=== PATIENT | female | born 1955 | race Caucasian/White ===

== ENCOUNTER 2024-09-01 10:20 | Outpatient (AMB) | payer MEDICARE, OTHER, SELFPAY ==
--- NOTE | 2024-09-01 10:30 | MHC.PC.OV ---
Vital Signs 09/01/24 10:42 Height 4 ft 11.45 in Weight 226 lb 8 oz BMI 45.1 BP 132/78 Blood Pressure Location Lt brachial Position Sitting Respiration 16 Pulse 79 Pulse Source Pulse Oximeter Pulse Oximetry (%) 99 Oxygen Delivery Method Room Air Intake Visit Reasons: RAPHAEL / from [facility] Intake Note: New patient visit Bead Builder Required: No Allergies morphine Allergy (Severe, Verified 09/01/24 10:36) Swelling Penicillins Allergy (Severe, Verified 09/01/24 10:36) face swelling sulfamethoxazole [From Bactrim] Allergy (Severe, Verified 09/01/24 10:36) Rash trimethoprim [From Bactrim] Allergy (Severe, Verified 09/01/24 10:36) Rash doxycycline Allergy (Unknown, Verified 09/01/24 10:36) Hives bee sting Allergy (Severe, Uncoded 09/01/24 10:36) Hives ivp dye Allergy (Unknown, Uncoded 09/01/24 10:36) Hives Tobacco use date assessed: 09/01/24 Fall risk assessment: No Falls in past year Last assessed Fall Risk: 09/01/24 Dental Screening Dental Screen Date: 09/01/24 Did you have a dental visit in the last 12 months?: Yes Did you have a dental problem in the last 6 months where you did not have access to dental care?: No Was dental information given to patient?: Patient has dentist HPI HPI Comments History of Present Illness Details 69 year old female with a past medical history of hypertension, prediabetes, viral pericarditis, obesity, OA, back pain, presenting to reestablish care CV: On lisinopril. Had post viral pericarditis ~ 1 year ago. Denies chest pain, shortness of breath. MSK: Neck, low back, knee pain. Following with Sharif King. Tweaked the back in February. [place] something pop when she woke up. Had MRI lumbar spine with no actue findings. Urologic: 2019 kidney stone removal. Passed right sided kidney stone last week. Follows every six months with Dr Valdez. Leyla due 08/14/2026 Mammogram 02/28/2025 ROS CONSTITUTIONAL: Denies weight loss, fever and chills. HEENT: Denies changes in vision and hearing. RESPIRATORY: Denies SOB and cough. CV: Denies palpitations and CP GI: Denies abdominal pain, nausea, vomiting and diarrhea. : Denies dysuria and urinary frequency. MSK: Denies new myalgia and joint pain. SKIN: Pain on the great toe bed NEUROLOGICAL: Denies headache PSYCHIATRIC: Denies recent changes in mood. PHYSICAL EXAM: GENERAL: Alert and oriented x 3. NAD EYES: EOMI. Anicteric. HENT: Moist mucous membranes. No scleral icterus. No cervical lymphadenopathy. LUNGS: Clear to auscultation bilaterally. CARDIOVASCULAR: Regular rate and rhythm. No murmur. No JVD. ABDOMEN: Soft, non-tender +bs EXTREMITIES: No edema. Non-tender. SKIN: Pain under the right great toe nail with mild fluctuance NEUROLOGIC: No focal neurological deficits. CN II-XII grossly intact PSYCHIATRIC: Cooperative. 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 1. Little interest or pleasure in doing things: not at all 2. Feeling down, depressed, or hopeless: not at all 3. Trouble falling or staying asleep, or sleeping too much: not at all 4. Feeling tired or having little energy: not at all 5. Poor appetite or overeating: not at all 6. Feeling bad about yourself - or that you are a failure or have let yourself or your family down: not at all 7. Trouble concentrating on things, such as reading the newspaper or watching television: not at all 8. Moving or speaking so slowly that other people could have noticed. Or the opposite - being so fidgety or restless that you have been moving around a lot more than usual: not at all 9. Thoughts that you would be better off or of hurting yourself in some way: not at all Total score: 0 Source: Developed by Drs. Yovany Ross, Jaky An, Sammy Goldstein and colleagues, with an educational jerome from [employer]. Thrive Questionnaire Date Thrive assessed: 08/25/24 I am a: Patient What is your living situation today?: I have a steady place to live Within the past 12 months, did the food you bought not last and you didn't have the money to get more?: I choose not to answer this question Within the past 12 months, did you worry whether your food would run out before you got money to buy more?: I choose not to answer this question Do you have trouble paying for medicines?: I choose not to answer this question Do you have trouble getting transportation to medical appointments?: I choose not to answer this question Do you have trouble paying your heating and electricity bill?: I choose not to answer this question Do you have trouble taking care of your child, family member or friend?: I choose not to answer this question Do you have trouble with day-to-day activities such as bathing, preparing meals, shopping, managing finances, etc.?: I choose not to answer this question Are you currently unemployed and looking for a job?: I choose not to answer this question Are you interested in more education?: I choose not to answer this question Please select the resources that you would like help with: None Currently or been in a relationship where the following occur: No concerns reported THRIVE Score: 0 AUDIT C Alcohol Use Questionnaire (AUDIT-C) 1. How often do you have a drink containing alcohol?: Never Total Score: 0 IVA-7 AMB Questionnaire IVA-7 Feeling nervous, anxious, or on edge: 0 = Not at all Not being able to stop or control worryin = Not at all Worrying too much about different things: 0 = Not at all Trouble relaxin = Not at all Being so restless that it is hard to sit still: 0 = Not at all Becoming easily annoyed or irritable: 0 = Not at all Feeling afraid as if something awful might happen: 0 = Not at all Total IVA-7 score (0-4 normal; 5-9 mild; 10-14 moderate; 15-21 severe): 0 Source: Developed by Drs. Yovany Ross, Jaky An, Sammy Goldstein and colleagues, with an educational jerome from [employer]. Physical exam (Primary Care) Vital Signs: Last Vital Signs Pulse 79 09/01/24 10:42 Resp 16 09/01/24 10:42 BP 132/78 09/01/24 10:42 Pulse Ox 99 09/01/24 10:42 Oxygen Delivery Method Room Air 09/01/24 10:42 BMI result Body Mass Index 45.1 Tobacco/Smoking Status: Tobacco use Status Tobacco use date assessed 09/01/24 09/01/24 10:46 Patient Tobacco Use Status Never used Tobacco 09/01/24 10:46 e-Cigarette/Vaping Use Never Used 09/01/24 10:46 PHQ-9: PHQ-9 Score PHQ-9: Total score 0 09/01/24 10:52 Thrive Assessment: Date of Thrive Assessment Date Thrive assessed 08/25/24 09/01/24 10:33 Currently or been in a relationship where the following occur: No concerns reported Coding Level of Care Code New Pt Level 4 (70247) Complex EM visit Add On G2211 Diagnoses Paronychia of great toe L03.039 Primary hypertension I10 Hypertension type: primary hypertension Prediabetes R73.03 Assessment & Plan Assessment & Plan (1) Paronychia of great toe: Code(s): L03.039 - Cellulitis of unspecified toe Category: Medical Plan: mupirocin ordered. 5 days of keflex. if no improvement she will call podiatry (2) Hypertension: Code(s): I10 - Essential (primary) hypertension Category: Medical Qualifiers: Hypertension type: primary hypertension Qualified Code(s): I10 - Essential (primary) hypertension (3) Prediabetes: Code(s): R73.03 - Prediabetes Category: Medical Plan 69 year old male female presenting to [facility]. past medical, surgical, social and family history reviewed. BP is well controlled. Monitor sugar. Orders: Orders Comprehensive Met. Panel 09/01/24 I10 - Essential (primary) hypertension, R73.03 - Prediabetes, Z13.0 - Encounter for screening for diseases of the blood and blood-forming organs and certain disorders involving the immune mechanism, Z13.220 - Encounter for screening for lipoid disorders, Z13.228 - Encounter for screening for other metabolic disorders Lipid Panel 09/01/24 I10 - Essential (primary) hypertension, R73.03 - Prediabetes, Z13.0 - Encounter for screening for diseases of the blood and blood-forming organs and certain disorders involving the immune mechanism, Z13.220 - Encounter for screening for lipoid disorders, Z13.228 - Encounter for screening for other metabolic disorders Complete Blood Count Auto Diff 09/01/24 I10 - Essential (primary) hypertension, R73.03 - Prediabetes, Z13.0 - Encounter for screening for diseases of the blood and blood-forming organs and certain disorders involving the immune mechanism, Z13.220 - Encounter for screening for lipoid disorders, Z13.228 - Encounter for screening for other metabolic disorders Hemoglobin A1c 09/01/24 R73.03 - Prediabetes Medications: New cephalexin 500 mg PO QID 20 caps 0RF mupirocin 2% 1 appl topical BID 22 grams 0RF lisinopril 10 mg PO DAILY 90 tabs 3RF
[2024-09-01 10:42] VITALS: BP 132/78; PULSE 79; RESP 16; O2SAT 99; BMI 45.1
--- OUTSIDE RECORDS SUMMARY | 2024-09-01 11:10 | XMS_ITS | Clinical Summary ---
Author Organization [facility] Facility Address [address] [place] [id number] Care Team Providers Care Sound Technician Name Role Phone Unavailable Primary Care Provider Unavailabl e Social History Tobacco Use Types Packs/Day Years Used Date Smoking Tobacco: Never Assessed Comments Unknown Sex and Gender Information Value Date Recorded Sex Assigned at Not on file Legal Sex Female 8:25 AM EDT Gender Identity Not on file Sexual Orientation Not on file Plan of Treatment Health Maintenance Due Date Last Done Comments Breast Cancer Screening 1957 Colorectal Cancer Screening: Annual FOBT 2006 Colorectal Cancer Screening: Colonoscopy 2006 Colorectal Cancer Screening: Sigmoidoscopy 2006 Pneumococcal Vaccine: 65+ Years (1 of 1 - PCV) 2022 Influenza Vaccine (#1) 2024 04/20/2018 Hepatitis B Vaccine Aged Out 10/26/2013, 05/26/2013, 04/26/2013 No longer eligible based on patient's age to complete this topic Insurance MEDICARE [facility] MEDICARE [facility]
--- OUTSIDE RECORDS SUMMARY | 2024-09-01 11:10 | XMS_ITS | Encounter Summary ---
Author Organization [facility] Address [address] [place] [address] Care Team Providers Care Syrup Maker Cook Name Role Phone Nicole Romo MD Primary Care Provider [phone] Reason for Visit * Reason Comments Foot Problem Fungus Encounter Details Date Type Department Care Team ([facility] st Contact Info) Description 08/02/2024 2:30 PM EST Consult Orthopedic Surgery - [place] [id number] [phone] Porfirio Byrne, DPM [address] [id number] Dermatophytosis of nail (Primary Dx); Tinea pedis of both feet; Pain in toe of right foot; Pain in toe of left foot; Diabetic mononeuropathy simplex (CMS/HCC) Social History Tobacco Use Types Packs/Day Years Used Date Smoking Tobacco: Never Assessed Comments Unknown Sex and Gender Information Value Date Recorded Sex Assigned at Not on file Legal Sex Female 10:56 AM EST Gender Identity Not on file Sexual Orientation Not on file documented as of this encounter Last Filed Vital Signs Vital Sign Reading Time Taken Comments Blood Pressure - - Pulse - - Temperature - - Respiratory Rate - - Oxygen Saturation - - Inhaled Oxygen Concentration - - Weight 103 kg (228 lb) 08/02/2024 2:54 PM EST Height - - Body Mass Index 46.05 04/05/2024 11:25 AM EDT documented in this encounter Ordered Prescriptions Prescription Sig Dispense Quantity Refills Last Filled Start Date End Date miconazole nitrate 2 % aerosol,spray Apply topically 1 (one) time each day. 133 g 2 08/02/2024 5 documented in this encounter Progress Notes * Porfirio Byrne DPM - 08/02/2024 2:30 PM EST Last PCP visit:Referring MD: Elva MARTINES 02/21/2024 IDENTIFIER: Kassidy is a 69 y.o. year old female who presents for consultation. CC: Foot pain HPI: Patient presents today for evaluation of her feet she reports that she has numbness burning tingling to her feet she states that she has thick fungal nails and skin that to bother her religiously andregularly she has not treated them she states they do bother her she feels like it itchy achy throbbing does follow with her primary care physician last A1c was 6 does note that her nerve damage may be more related to her history of multiple back surgeries and she feels like her feet feel funny andlook funny ROS: GENERAL: Pt denies nausea, fever, vomiting, chills, or shortness of breath. Pt in NAD. CARDIOLOGY: pt denies chest pain, palpitations LUNGS: pt denies shortness of breath MUSCULOSKELETAL: See HPI, otherwise no joint pain or swelling, back pain, or muscle pain. SKIN: see HPI, otherwise no lesions, rash or itching NEURO: No persistent headache, weakness or numbness The remainder of the review of systems is noncontributory PAST MEDICAL HISTORY: Patient Active Problem List Diagnosis Allergic rhinitis Benign paraspinal mass Essential hypertension, benign Cervicalgia Chronic sinusitis Dyspnea on exertion Lumbar radiculopathy Nephrolithiasis Right knee pain Varicose veins of lower extremities with inflammation Vitamin D deficiency Morbid obesity with BMI of 40.0-44.9, adult ([facility]) SOCIAL HISTORY: Social History Tobacco Use Smoking status: Not on file Smokeless tobacco: Not on file Substance Use Topics Alcohol use: Not on file ACTIVE MEDICATIONS: No outpatient medications have been marked as taking for the 08/02/24 encounter (Consult) with Porfirio Byrne DPM. ALLERGIES: Allergies Allergen Reactions Bee Venom Protein (Honey Bee) Swelling Iodinated Contrast Media Hives Morphine Anaphylaxis Penicillins Swelling Sulfa (Sulfonamide Antibiotics) Rash Doxycycline Itching Sulfamethoxazole-Trimethoprim Rash PHYSICAL EXAM: Visit Vitals Wt 103 kg (228 lb) BMI 46.05 kg/m?? Smoking Status Never Assessed BSA 1.95 m?? PODIATRIC EXAMINATION: GENERAL: Patient appears well nourished, with NAD. VASCULAR: Dorsalis pedis pulses are 2/4 bilaterally and Posterior tibial pulses are 2/4 bilaterally. Capillary filling time within normal limits the digits. No pallor on elevation or rubor on dependency. Positive hair growth. No varicosities. Denies rest pain or claudication pain. NEUROLOGICAL: Sharp/dull sensation , protective sensation 8/10 with 5.07 semmes kvng bilaterally, vibratory sensation with tuning fork intact to the tibial tuberosity. ORTHOPEDIC: Good muscle strength 5/5 of all flexors and extensors. Dorsi flexion of ankle ,10 degrees, plantar flexion WNL. No muscle atrophy. DERMATOLOGICAL:. Toenails: Left Toenail(s) 1-5: Crumbling upon debridement, subungual debris, discoloration, dystrophy, elongation, mycotic appearance, onychomycosis, pain and thickening. Right Toenail(s) 1-5: Crumbling upon debridement, subungual debris, discoloration, dystrophy, elongation, mycotic appearance, onychomycosis, pain and thickening. Annular scaling bilateral feet moccasin distribution Skin thinning texture shiny appearance diffuse hyperpigmentation bilaterally pedal hair decreased BIOMECHANICS: Ankle ROM WNL, STJ ROM wnl, MTJ ROM wnl, 1st MPJ ROM wnl. IMAGING: IMPRESSION: 1. Dermatophytosis of nail 2. Tinea pedis of both feet 3. Pain in toe of right foot 4. Pain in toe of left foot 5. Diabetic mononeuropathy simplex (CMS/HCC) PLAN: Pt was seen and examined, history reviewed. Miconazole spray prescribed Discussed with patient regarding proper glucose control, exercise, and diet. Explained to patient proper shoe gear, and importance of daily foot checks. I reviewed neuropathy and why it occurs in diabetics. I educated the patient on proper blood sugar control and the importance of an HgBA1c of less than 7.0%. I reviewed the signs and symptoms of neuropathy with the patient Pt to return for another evaluation in 3 months. Debridement of mycotic toenails 6-10: Verbal informed consent was obtained from the patient. Greater than 6 nails were aseptically debrided in thickness and length with nail nippers Porfirio Byrne DPM documented in this encounter Plan of Treatment Upcoming Encounters Date Type Department Care Team (Late st Contact Info) Description 11/01/2024 9:00 AM EDT Office Visit Orthopedic Surgery - [place] [address] [phone] Porfirio Byrne DPM [address] [address] 03/15/2025 3:50 PM EDT Appointment Radiology Department [address] [phone] documented as of this encounter Visit Diagnoses Diagnosis Dermatophytosis of nail- Primary Tinea pedis of both feet Pain in toe of right foot Pain in soft tissues of limb Pain in toe of left foot Pain in soft tissues of limb 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
--- OUTSIDE RECORDS SUMMARY | 2024-09-01 11:10 | XMS_ITS | Clinical Summary ---
Author Organization [facility] Address [address] [place] [address] Care Team Providers Care Water Leak Repairer Name Role Phone Nicole Romo MD Primary Care Provider [phone] Allergies Active Allergy Reactions Criticality Noted Date Comments Amoxicillin 04/05/2024 Sulfamethoxazole-Trimethoprim 2023 Penicillins 04/05/2024 Medications Medication Sig Dispensed Refills Start Date End Date Status lisinopril (PRINIVIL,ZESTRIL) tablet 10 mg Take 1 tablet (10 mg total) by mouth daily. 0 Active Cholecalciferol (Vitamin D) 50 MCG (2000 UT) tablet Take 2,000 Units by mouth daily. 0 Active Active Problems Problem Noted Date Diagnosed Date Neutrophilia 04/05/2024 Social History Tobacco Use Types Packs/Day Years Used Date Smoking Tobacco: Never Assessed Sex and Gender Information Value Date Recorded Sex Assigned at Not on file Gender Identity Not on file Sexual Orientation Not on file Job Start Date Occupation Industry Not on file Not on file Not on file Last Filed Vital Signs Vital Sign Reading Time Taken Comments Blood Pressure 111/45 04/05/2024 11:25 AM EDT Pulse 85 04/05/2024 11:25 AM EDT Temperature 36.2 ??C (97.1 ??F) 04/05/2024 11:25 AM E DT Respiratory Rate - - Oxygen Saturation 100% 04/05/2024 11:25 AM EDT Inhaled Oxygen Concentration - - Weight 103.4 kg (228 lb) 04/05/2024 11:25 AM EDT Height 149.9 cm (4' 11 ) 04/05/2024 11:25 AM EDT Body Mass Index 46.05 04/05/2024 11:25 AM EDT Plan of Treatment Health Maintenance Due Date Last Done Comments Hepatitis C Screening 1955 COVID-19 Vaccine (#1) 1962 Pneumococcal Vaccine (1 of 2 - PCV) 1963 Depression Screening 1969 Preventative Health Evaluation 1975 Shingrix-Zoster Vaccine (1 of 2) 01/02/1976 Colon Cancer Screening (Colonoscopy) 2002 Breast Cancer Screening (Mammogram) 2007 RSV Adult > 60+ Yrs or (1 - Risk 60-74 years 1-dose series) 2017 Fall Risk Assessment 2022 Osteoporosis Screening (DEXA Scan) 2022 Influenza Vaccine (#1) 2024 2, 04/30/2020, 05/19/2019, Additional history exists DTap / Tdap / Td (3 - Td or Tdap) 07/23/2029 07/23/2019, 09/30/2011 Hepatitis B Vaccines Completed 10/26/2013, 05/26/2013, 04/26/2013 RSV Ped < 20 months Aged Out No longe r eligible based on patient's age to complete this topic Care Teams Water Leak Repairer Relationship Specialty Start Date End Date Nicole Romo MD [address] [place] [id number] PCP - General Internal Medicine 02/29/24
--- OUTSIDE RECORDS SUMMARY | 2024-09-01 11:10 | XMS_ITS | Clinical Summary ---
Author Organization 175 [facility] Address [address] [place] [address] Phone Care Team Providers Care Glassware Selector Name Role Phone Nicole Romo MD Primary Care Provider [phone] Allergies Active Allergy Reactions Criticality Noted Date Comments Bee Venom Protein (Honey Bee) Swelling High 2007 Doxycycline Itching 03/16/2014 Iodinated Contrast Media Hives High 08/31/2005 Morphine Anaphylaxis High 08/01/2021 Penicillins Swelling High 08/31/2005 Sulfa (Sulfonamide Antibiotics) Rash High 08/19 Sulfamethoxazole-Trimethoprim Rash 2020 Medications albuterol HFA (PROAIR HFA ; PROVENTIL HFA ; VENTOLIN HFA) 90 mcg/actuation inhaler Inhale 2 Puffs into the lungs every 4 hours as needed for Cough or Wheezing. 4 Active calcium carbonate/vitam in D3 (CALCIUM + D ORAL) Take by mouth daily. Active EPINEPHrine (EpiPen 2-Bandar) 0.3 mg/0.3 mL injection Inject 1 Ampule as directed as needed (anaphylactic reaction). Must go to ER if med is used 4 Active lisinopriL (PRINIVIL,ZESTR IL) 10 mg tablet TAKE 1 TABLET BY MOUTH EVERY DAY 4 Active miconazole nitrate 2 % aerosol,spray Apply topically 1 (one) time each day. 133 g 2 5 11/01/19 25 Active Active Problems Problem Noted Date Diagnosed Date Morbid obesity with BMI of 40.0-44.9, adult 05/20 Dyspnea on exertion 09/30/2022 Overview (06/12/2024): Last Assessment & Plan: Dyspnea on exertion is most likely multifactorial. Breanna is a non-smoker and never had asthma and the pulmonary function test is normal. Most likely her dyspnea is multifactorial and secondary to deconditioning, history of pericarditis and morbid obesity. I explained her that she may need a stress test and she is going to see the portable irrigation operator at the end of the month. If the echocardiogram is normal she may need an exercise testing but I explained her that at this point the only test that is indicated is a chest x-ray to evaluate the anatomical structures of the chest. I will see her back in 4 months. 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 Differential includes cystic schwannoma, teratoma, lymphangioma with proteinaceous content Lumbar radiculopathy 09/14/2018 Overview (06/12/2024): November 2018- Dr Snow Allergic rhinitis 02/13/2018 Cervicalgia 01/13/2018 Right knee pain 06/09/2017 Vitamin D deficiency 04/28/2013 Nephrolithiasis 09/10/2011 Chronic sinusitis 08/27/2011 Varicose veins of lower extremities with inflamm ation 10/09/2010 Essential hypertension, benign 09/01/2005 Encounters Date Type Department Care Team Description 08/02/2024 2:30 PM EST Consult Orthopedic Surgery [place] [address] [place] [address] [place] [id number] Porfirio Byrne, DPM Dermatophytosis of nail (Primary Dx); Tinea pedis of both feet; Pain in toe of right foot; Pain in toe of left foot; Diabetic mononeuropathy simplex (CMS/HCC) from Last 3 Months Immunizations Name Administration Dates Next Due Hepatitis B (Nptfwmq-N-Rxlyw , Recombivax HB-Adult) 19yo and older 10/26/2013,05/26/2013,04/26/2013 Influenza Quadravalent, MDCK , 0.5ml, preservative free (Flucelvax) 6mo and older 04/20/2018 Influenza Quadravalent, MDCK , 0.5ml, with preservative (Flucelvax) 6mo and older 04/08/2017 Influenza trivalent, 0.5mL ( Fluad) 65yo and older 06/08/2022 Influenza trivalent, 0.5mL, preservative free (Fluarix; FluLaval; Fluzone) ages 6mo and older (Afluria) 3 years and older 04/29/2015,06/13/2014 Influenza trivalent, with pr eservative (Fluzone; Afluria) 6mo and older 04/30/2020,05/19/2019,04/05/2013 Influenza, Unspecified 05/06/2023,05/03/2021 Moderna SARS-CoV-2 COVID-19, mRNA, LNP-S, preservative free 05/06/2023,11/14/2021,05/30/2021 Td Tetanus diptheria (Tdvax) 7yo and older 08/29 Tdap Tetanus diptheria acell ular pertussis (Boostrix; Adacel) 7yo and older 07/23/2019,09/30/2011 Social History Tobacco Use Types Packs/Day Years Used Date Smoking Tobacco: Never Assessed Comments Unknown Sex and Gender Information Value Date Recorded Sex Assigned at Not on file Legal Sex Female 10:56 AM EST Gender Identity Not on file Sexual Orientation Not on file Obstetrics History Last Filed Vital Signs Vital Sign Reading Time Taken Comments Blood Pressure 111/45 04/05/2024 11:25 AM EDT Pulse 85 04/05/2024 11:25 AM EDT Temperature - - Respiratory Rate - - Oxygen Saturation - - Inhaled Oxygen Concentration - - Weight 103 kg (228 lb) 08/02/2024 2:54 PM EST Height 149.9 cm (4' 11 ) 04/05/2024 11:25 AM EDT Body Mass Index 46.05 04/05/2024 11:25 AM EDT Plan of Treatment Upcoming Encounters Date Type Department Care Team (Late st Contact Info) Description 11/01/2024 9:00 AM EDT Office Visit Orthopedic Surgery - [place] [address] [phone] Porfirio Byrne, MARIANGEL [address] [address] 03/15/2025 3:50 PM EDT Appointment Radiology Department [address] [phone] Health Maintenance Due Date Last Done Comments Diabetes: Annual Foot Exam 1967 Diabetes: Annual Retina Eye Exam 1967 Pneumococcal Vaccine: 50+ Years (1 of 2 - PCV) 01/02/1976 Zoster Vaccines (1 of 2) 01/02/1976 RSV Immunization Patients 60+ Years Old (1 - Risk 60-74 years 1-dose series) 2017 Osteoporosis Screening (Bone Density Screening) 06/22/2022 Social Influencers of Health Screening 06/22/2022 COVID-19 Vaccine ( season) 2024 05/06/2023, 11/14/2021, 05/30/2021, Additional history exists Depression Screening 07/29/2024 07/29/2023 Falls Risk Assessment 07/29/2024 07/29/2023 Medicare Annual Wellness Visit 07/29/2024 07/29/2023 Diabetes: Annual Urine Albumin-Creatinine Ratio (uACR) 08/02/2024 Diabetes: Blood Sugar Control Test (HGBA1C) 08/23/2024 02/21/2024, 02/21/2024 Diabetes: Annual GFR (Glomerular Filtration Rate) 02/20/2025 02/21/2024, 02/21/2024 Hypertension/CHF/CAD Annual BMP Blood Test 02/20/2025 02/21/2024, 02/21/2024 Breast Cancer Screening 02/28/2026 02/29/20 24, 02/29/2024, 05/01/2019, Additional history exists Colorectal Cancer Screening: FIT-DNA (Cologuard) 08/14/2026 08/14/2023, 08/14/2023, 08/14/2023 Cholesterol Screening (Lipid Panel) 07/30/2028 07/30/2023 DTaP,Tdap,and Td Vaccines (4 - Td or Tdap) 07/23/2029 07/23/2019, 09/30/2011, 08/29/1997 Hepatitis B Vaccines Completed 10/26/2013, 05/26/2013, 04/26/2013 Hepatitis C Screening Completed 12/11/2015 Influenza Vaccine Completed 05/06/2024, , 05/03/2023, Additional history exists HIB Vaccines Aged Out No longer eligi ble based on patient's age to complete this topic HPV Vaccines Aged Out No longer eligi ble based on patient's age to complete this topic Hepatitis A Vaccines Aged Out No long er eligible based on patient's age to complete this topic IPV Vaccines Aged Out No longer eligi ble based on patient's age to complete this topic MMR Vaccines Aged Out No longer eligi ble based on patient's age to complete this topic Meningococcal ACWY Vaccine Aged Out N o longer eligible based on patient's age to complete this topic Meningococcal B Vacine Aged Out No lo nger eligible based on patient's age to complete this topic RSV Immunization Patients Under 20 months Aged Out No longer eligible based on patient's age to complete this topic Varicella Vaccines Aged Out No longer eligible based on patient's age to complete this topic Procedures Procedure Name Priority Date/Time Associated Diagnosis Comments SCREENING MAMMOGRAPHY BI 2-VIEW BREAST INC CAD Routine 02/29/2024 9:07 AM EDT Encounter for screening mammogram for malignant neoplasm of breast ANNUAL BMP BLOOD TEST Routine 02/21/2024 HEMOGLOBIN A1C Routine 02/21/2024 FIT-DNA Routine 08/14/2023 LIPID PANEL Routine 07/30/2023 DEPRESSION SCREENING Routine 07/29/2023 FALLS RISK ASSESSMENT Routine 07/29/2023 HEPATITIS C SCREENING Routine 12/11/2015 from Last 3 Months or Most Recently Relevant to Health Maintenance Results * SCREENING MAMMOGRAPHY BI 2-VIEW BREAST INC CAD (02/29/2024 9:07 AM EDT) Anatomical Region Laterality Modality Radiographic Katie ging 02/21/2024 1:23 PM EDT Narrative 02/29/2024 5:15 PM EDT This is a summary report. The complete report is available in the patient's medical record. If you cannot access the medical record, please contact the sending organization for a detailed fax or copy. Study: SCREENING MAMMOGRAPHY BI 2-VIEW BREAST INC CAD Technique: Bilateral full-field digital screening mammography is obtained and read in conjunction with computer aided detection. ??Tomosynthesis as well as 2D C-View imaging were obtained. Comparison: Comparison made to multiple priors, most recent left diagnostic mammogram on May 01, 2019, and most remote bilateral mammogram on December 06, 2014. Breast composition: The breast tissue is heterogeneously dense, which may obscure small masses. Bilateral breasts: Redemonstration of ectatic ducts in the subareolar region of both breasts. ??No significant masses, suspicious calcifications or other abnormalities are seen in either breast. IMPRESSION: Impression: Bilateral breasts: Benign, no specific mammographic evidence of malignancy. ??Normal interval follow-up is recommended in 12 months. BI-RADS: Category 2: Benign Procedure Note Trevor Roque MD - 05/03/2024 This is a summary report. The complete report is available in thepatient's medical record. If you cannot access the medical record, pleasecontact the sending organization for a detailed fax or copy. Study: SCREENING MAMMOGRAPHY BI 2-VIEW BREAST INC CAD Technique: Bilateral full-field digital screening mammography is obtainedand read in conjunction with computer aided detection. Tomosynthesis aswell as 2D C-View imaging were obtained. Comparison: Comparison made to multiple priors, most recent leftdiagnostic mammogram on May 01, 2019, and most remote bilateralmammogram on December 06, 2014. Breast composition: The breast tissue is heterogeneously dense, which mayobscure small masses. Bilateral breasts: Redemonstration of ectatic ducts in the subareolarregion of both breasts. No significant masses, suspicious calcificationsor other abnormalities are seen in either breast. IMPRESSION: Impression: Bilateral breasts: Benign, no specific mammographic evidence ofmalignancy. Normal interval follow-up is recommended in 12 months. BI-RADS: Category 2: Benign Result [facility] Elva MARTINES IMG XR PROCEDURES Final Re sult * Annual BMP Blood Test (02/21/2024) [facility] Annual BMP Blood Test Abstracted Result [facility] HEALTH MAINTENANCE Final Result * Hemoglobin A1c (02/21/2024) [facility] Hemoglobin A1C 6.1 <=6.5 % Blood Venous blood specimen / Unknown Result [facility] LAB BLOOD ORDERABLES Jovita l Result * FIT-DNA (Cologuard) (08/14/2023) [facility] Colorectal Cancer Screening: FIT-DNA (Cologuard) Abstracted, Negative Result [facility]ALTH MAINTENANCE Final Result * (ABNORMAL) Lipid panel (07/30/2023) [facility] LDL/HDL Ratio 4 0 - 4 Triglycerides 107 0 - 150 mg/dL Cholesterol 169 0 - 200 mg/dL HDL 46 >=40 mg/dL LDL Cholesterol 102(A) 0 - 100 mg/dL Blood Venous blood specimen / Unknown Result [facility] LAB BLOOD ORDERABLES Jovita l Result * Falls Risk Assessment (07/29/2023) [facility] Falls Risk Assessment Abstracted Result [facility] HEALTH MAINTENANCE Final Result * Depression Screening (07/29/2023) [facility] Depression Screening Abstracted Result [facility] MAINTENANCE Final Result * Hepatitis C Screening (12/11/2015) [facility] Hepatitis C Screening Abstracted Result [facility]ALTH MAINTENANCE Final Result from Last 3 Months or Most Recently Relevant to Health Maintenance Insurance MEDICARE [facility] Care Teams Glassware Selector Relationship Specialty Start Date End Date Nicole Romo MD [address] [place] [address] YUMIKO Carrillo [id number] PCP - General 02/29/24
== END 2024-09-01 11:33 | disposition home or self-care (01) ==
PROVIDERS: PCP Internal Medicine; Visit Provider Internal Medicine
DX: L03.039 Cellulitis of unspecified toe (principal); I10 Essential (primary) hypertension; R73.03 Prediabetes

== ENCOUNTER → 2024-09-01 10:20 | Outpatient (BNVA) | payer MEDICARE, OTHER, SELFPAY | PROVIDERS: PCP Internal Medicine; Visit Provider Internal Medicine | DX: I10 Essential (primary) hypertension (principal); R73.03 Prediabetes; L03.039 Cellulitis of unspecified toe | CPT/HCPCS: 96127; 99202 ==

== ENCOUNTER 2024-11-20 15:26 | Outpatient (AMB) | payer MEDICARE, OTHER, SELFPAY ==
--- NOTE | 2024-11-20 15:33 | MHC.PC.OV ---
Vital Signs 11/20/24 15:40 11/20/24 16:08 Height 4 ft 11.5 in Weight 219 lb BMI 43.5 BP 118/68 Blood Pressure Location Lt brachial Position Sitting Pulse 101 H 96 Pulse Source Pulse Oximeter Temp 98.9 F Temp Source Temporal Artery Scan Pulse Oximetry (%) 98 Oxygen Delivery Method Room Air Intake Visit Reasons: Patient was discharged on 11/04/24 from [facility] Intake Note: Jess presents in the office today for an ER follow up. Allergies morphine Allergy (Severe, Verified 11/20/24 15:39) Swelling Penicillins Allergy (Severe, Verified 11/20/24 15:39) face swelling sulfamethoxazole [From Bactrim] Allergy (Severe, Verified 11/20/24 15:39) Rash trimethoprim [From Bactrim] Allergy (Severe, Verified 11/20/24 15:39) Rash doxycycline Allergy (Unknown, Verified 11/20/24 15:39) Hives bee sting Allergy (Severe, Uncoded 09/01/24 10:36) Hives ivp dye Allergy (Unknown, Uncoded 09/01/24 10:36) Hives Tobacco use date assessed: 11/20/24 Fall risk assessment: No Falls in past year Last assessed Fall Risk: 11/20/24 Dental Screening Dental Screen Date: 11/20/24 Did you have a dental visit in the last 12 months?: Yes Did you have a dental problem in the last 6 months where you did not have access to dental care?: No Was dental information given to patient?: Patient has dentist HPI HPI Comments History of Present Illness Details 69-year-old female with a past medical history of nephrolithiasis, prediabetes, hypertension and hyperlipidemia presents for hospital follow up. The patient was admitted at [facility] November 03 to 11/04/2024 for right-sided nephrolithiasis with right hydronephrosis. Patient underwent cystoscopy and retrograde ureteral stent placement of the right side with Dr. Gutierrez. Notes indicate she was placed on Keflex on November 04 for 5 days due to recent instrumentation of the bladder and ureters. She also received Rocephin in the hospital with no complications. She was also treated with Toradol for pain. The medications caused stomach upset and dry heaving, but she did complete the course of antibiotics. She followed up with Urology last week, and she has an appointment scheduled on 12/07/2024 to remove the stent. She laments that this is not sooner because it is uncomfortable. She also notes urinary frequency since stent placement. She endorses intermittent chills though no fever, dysuria, hematuria or significant flank or abdominal pain. Patient's white blood cell count was elevated around 20,000 while hospitalized, but this is her baseline, and she has seen hematology for it. She is drinking fluids. ROS: Constitutional: +fatigue and chills, no fevers or night sweats. Eyes: No vision changes Respiratory: No shortness of breath, cough or sputum production. Cardiovascular: No chest pain, chest pressure or chest discomfort. No palpitations or pedal edema. Gastrointestinal: No anorexia, nausea, vomiting or diarrhea. No abdominal pain or blood in stool. Genitourinary: See HPI Neurologic: No headache, dizziness, syncope Physical exam: Constitutional: Alert, in no distress. Appears well. Neck: Supple, Full range of motion. No lymphadenopathy. Respiratory: Clear to auscultation. Cardiovascular: S1 S2 regular. No murmurs. Gastrointestinal: Abdomen soft, non-tender, non-distended. Normal bowel sounds. No palpable masses. Genitourinary: No costovertebral angle tenderness. Neurologic: No focal neurological deficits Extremities: Warm and well perfused. No calf swelling or tenderness or erythema. Psychiatric: Normal mood and affect [facility] Medical History (Updated 11/20/24 @ 17:23 by BOBBI Deng) Hydronephrosis Nephrolithiasis Surgical History (Updated 11/20/24 @ 17:23 by BOBBI Deng) S/P ureteral stent placement [place] teeth removed H/O: hysterectomy H/O section H/O Spinal surgery Family History Mother HTN (hypertension) Maternal Grandmother Breast cancer Father Dementia Maternal Grandfather Embolism Maternal Grandmother Brain embolism and thrombosis Social History (Updated 11/20/24 @ 15:37 by Alejandra Lucas MA) Housing: House Alcohol intake: never Patient Tobacco Use Status: Never used Tobacco e-Cigarette/Vaping Use: Never Used Second Hand Smoke Exposure: No Use of substances other than those prescribed or required for medical reasons: No service: No 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 1. Little interest or pleasure in doing things: not at all 2. Feeling down, depressed, or hopeless: not at all 3. Trouble falling or staying asleep, or sleeping too much: not at all 4. Feeling tired or having little energy: not at all 5. Poor appetite or overeating: not at all 6. Feeling bad about yourself - or that you are a failure or have let yourself or your family down: not at all 7. Trouble concentrating on things, such as reading the newspaper or watching television: not at all 8. Moving or speaking so slowly that other people could have noticed. Or the opposite - being so fidgety or restless that you have been moving around a lot more than usual: not at all 9. Thoughts that you would be better off or of hurting yourself in some way: not at all Total score: 0 Depression Screening Interpretation: Negative Depression Screening Done: Yes 75576 - PHQ-9 Billing: Patient declined-do not bill Source: Developed by Drs. Yovany Ross, Jaky An, Sammy Goldstein and colleagues, with an educational jerome from [employer]. Thrive Questionnaire Date Thrive assessed: 11/20/24 I am a: Patient What is your living situation today?: I have a steady place to live Within the past 12 months, did the food you bought not last and you didn't have the money to get more?: I choose not to answer this question Within the past 12 months, did you worry whether your food would run out before you got money to buy more?: I choose not to answer this question Do you have trouble paying for medicines?: I choose not to answer this question Do you have trouble getting transportation to medical appointments?: I choose not to answer this question Do you have trouble paying your heating and electricity bill?: I choose not to answer this question Do you have trouble taking care of your child, family member or friend?: I choose not to answer this question Do you have trouble with day-to-day activities such as bathing, preparing meals, shopping, managing finances, etc.?: I choose not to answer this question Are you currently unemployed and looking for a job?: I choose not to answer this question Are you interested in more education?: I choose not to answer this question Please select the resources that you would like help with: None Currently or been in a relationship where the following occur: No concerns reported THRIVE Score: 0 AUDIT C Alcohol Use Questionnaire (AUDIT-C) 1. How often do you have a drink containing alcohol?: Never Total Score: 0 IVA-7 AMB Questionnaire IVA-7 Date IVA - 7 assessed: 11/20/24 Feeling nervous, anxious, or on edge: 0 = Not at all Not being able to stop or control worryin = Not at all Worrying too much about different things: 0 = Not at all Trouble relaxin = Not at all Being so restless that it is hard to sit still: 0 = Not at all Becoming easily annoyed or irritable: 0 = Not at all Feeling afraid as if something awful might happen: 0 = Not at all Total IVA-7 score (0-4 normal; 5-9 mild; 10-14 moderate; 15-21 severe): 0 Source: Developed by Drs. Yovany Ross, Jaky An, Sammy Goldstein and colleagues, with an educational jerome from [employer]. IVA-7 Assessment Billing IVA-7 Assessment Tool: IVA-7 Assessment 38733 Physical exam (Primary Care) Vital Signs: Last Vital Signs Temp 98.9 F 11/20/24 15:40 Pulse 96 11/20/24 16:08 BP 118/68 11/20/24 15:40 Pulse Ox 98 11/20/24 15:40 Oxygen Delivery Method Room Air 11/20/24 15:40 BMI result Body Mass Index 43.5 Tobacco/Smoking Status: Tobacco use Status Tobacco use date assessed 11/20/24 11/20/24 15:37 Patient Tobacco Use Status Never used Tobacco 11/20/24 15:37 e-Cigarette/Vaping Use Never Used 11/20/24 15:37 PHQ-9: PHQ-9 Score PHQ-9: Total score 0 11/20/24 15:51 Depression Screening Interpretation: Negative Thrive Assessment: Date of Thrive Assessment Date Thrive assessed 11/20/24 11/20/24 15:45 Currently or been in a relationship where the following occur: No concerns reported Coding Level of Care Code Est Pt Level 4 (06519) Complex EM visit Add On G2211 Diagnoses Nephrolithiasis N20.0 Hydronephrosis N13.30 S/P ureteral stent placement Z96.0 Additional Codes IVA-7 Assessment Billing - IVA-7 Assessment Tool: IVA-7 Assessment [id number] ([id number]) Assessment & Plan Assessment & Plan (1) Nephrolithiasis: Code(s): N20.0 - Calculus of kidney Category: Medical (2) Hydronephrosis: Code(s): N13.30 - Unspecified hydronephrosis Category: Medical (3) S/P ureteral stent placement: Code(s): Z96.0 - Presence of urogenital implants Category: Surgical Plan In summary this is a 69-year-old female who underwent cystoscopy and stent placement for right nephrolithiasis and hydronephrosis. She is following up with Urology and has stent removal scheduled 12/08/2023. Urine dip is abnormal today which I would expect due to recent stent placement however there are no nitrites. Patient afebrile. No CVA tenderness. Do not suspect urosepsis or pyelonephritis at this time. I would like urine culture to be done to rule out UTI. There was not enough urine to send for culture so I asked her to return tomorrow to repeat it, and I also requested a CBC and BMP which could not be done today because the lab closed. We also discussed the option of initiating antibiotics today, but I did let her know that urine culture may not be accurate if it is collected after she begins antibiotics, and she wants to defer antibiotics unless the culture is positive due to the recent stomach upset she had on antibiotics. This is reasonable as long as her symptoms remained stable. If she develops shaking chills, fevers, flank pain, hematuria, vomiting or dysuria or other concerning symptoms she was advised to go to the ER for further evaluation. She understands. She has follow up scheduled with Urology. Orders: Orders Urine Culture Today R39.9 - Unspecified symptoms and signs involving the genitourinary system UA w Microscopic Today R39.9 - Unspecified symptoms and signs involving the genitourinary system AMB Urinalysis Dipstick Today Z13.9 - Encounter for screening, unspecified Basic Metabolic Panel Today N20.0 - Calculus of kidney Complete Blood Count Auto Diff Today N20.0 - Calculus of kidney
[2024-11-20 15:40] VITALS: BP 118/68; PULSE 101; TEMP 37.2; O2SAT 98; BMI 43.5
[2024-11-20 16:08] VITALS: PULSE 96
--- OUTSIDE RECORDS SUMMARY | 2024-11-20 17:01 | XMS_ITS | Clinical Summary ---
Author Organization [facility] Facility Address [address] [place] [id number] Care Team Providers Care Shop Steward Name Role Phone Unavailable Primary Care Provider [...] Colorectal Cancer Screening: Sigmoidoscopy 2006 Pneumococcal Vaccine: 50+ Years (1 of 1 - PCV) 2007 Influenza Vaccine (Season Ended) 2025 04/20/2018 Hepatitis B Vaccine Aged Out 10/26/2013, 05/26/2013, 04/26/2013 No longer eligible based on patient's age to complete this topic Insurance Medicare [facility]
--- OUTSIDE RECORDS SUMMARY | 2024-11-20 17:01 | XMS_ITS ---
Author Organization 175 [facility] Address [address] [place] [address] Phone Care Team Providers Care Seed Expert Name Role Phone Nicole Romo MD Primary Care Provider [phone] Transitional Care Management Status:Ongoing (Active) Start date:11/04/2024 Enrollment date:11/04/2024 Enrollment reason:Identified using hospital discharge data Case Team Name Relationship Phone Nayan Benoit LPN Care Manager(Responsible Staff) Continued Care and Services Coordination
--- OUTSIDE RECORDS SUMMARY | 2024-11-20 17:01 | XMS_ITS | Clinical Summary ---
Author Organization [facility] Address [address] [place] [address] Care Team Providers Care Operator Helper Name Role Phone Nicole Romo MD Primary Care Provider [phone] [phone] Allergies Active Allergy Reactions Criticality Noted Date [...] age to complete this topic Care Teams Operator Helper Relationship Specialty Start Date End Date Nicole Romo MD [address] [place] [id number] PCP - General Internal Medicine 02/29/24
--- OUTSIDE RECORDS SUMMARY | 2024-11-20 17:01 | XMS_ITS | Clinical Summary ---
Author Organization [facility] Address [address] [place] [address] Phone Care Team Providers Care Signal And Communications Maintainer Name Role Phone Nicoel Romo MD Primary Care Provider [phone] [phone] Allergies Active Allergy Reactions Criticality Noted Date [...] 133 g 2 5 11/01/19 25 Active Problems Problem Noted Date Diagnosed Date Morbid obesity with BMI of 4 0.0-44.9, adult ([facility] V24, [facility] V28) 06/12/2024 Dyspnea on exertion 09/30/2022 Overview (06/12/2024): Last [...] and she is going to see the structured cabling technician at the end of the month. If [...] Encounters Date Type Department Care Team Description 11/01/2024 9:00 AM EDT Office Visit Orthopedic Surgery - [place] [address] [place] [address] [place] [phone] Porfirio Byrne, DPM Dermatophytosis of nail (Primary Dx); Tinea pedis of both feet; Pain in toe of right foot; Pain in toe of left foot; Difficulty walking; Diabetic mononeuropathy simplex ([facility] V24, [facility] V28) from Last 3 Months Immunizations Name Administration Dates Next Due Hepatitis B (Fshxywt-Z-Xsviz , Recombivax HB-Adult) 19yo and older 10/26/2013,05/26/2013,04/26/2013 [...] - - Weight 103 kg (228 lb) 11/01/2024 8:47 AM EDT Height 149.9 cm (4' 11.02 ) 11/01/2024 8:47 AM E DT Body Mass Index 46.03 11/01/2024 8:47 AM EDT Plan of Treatment Upcoming Encounters Date Type Department Care Team (Late st Contact Info) Description 01/31/2025 8:45 AM EDT Office Visit Orthopedic Surgery - [place] [address] [phone] Porfirio Byrne, DPM [address] [address] 03/15/2025 3:50 PM EDT Appointment Radiology Department [address] [phone] Health Maintenance Due Date Last Done Comments Diabetes: Annual Foot Exam 1967 Diabetes: Annual Retina Eye Exam 1967 Pneumococcal Vaccine: 50+ Years (1 of 2 - PCV) 01/02/1976 Zoster Vaccines (1 of 2) 01/02/1976 RSV Immunization Adult Patients (1 - Risk 60-74 years 1-dose series) 2017 Osteoporosis Screening (Bone Density Screening) 06/22/2022 Social Influencers of Health Screening 06/22/2022 COVID-19 Vaccine ( season) 2024 05/06/2023, 11/14/2021, 05/30/2021, Additional history exists Depression Screening 07/29/2024 07/29/2023 Falls Risk Assessment 07/29/2024 07/29/2023 Medicare Annual Wellness Visit 07/29/2024 07/29/2023 Diabetes: Annual Urine Albumin-Creatinine Ratio (uACR) 11/01/2024 Diabetes: Blood Sugar Control Test (HGBA1C) 11/01/2024 02/21/2024, 02/21/2024 Diabetes: Annual GFR (Glomerular Filtration [...] age to complete this topic Meningococcal B Vaccine Aged Out No l onger eligible based on patient's age to complete [...] 12 months. BI-RADS: Category 2: Benign Result [facility] Elva MARTINES IMG XR PROCEDURES Final Re sult * Annual BMP Blood Test (02/21/2024) [facility] Annual BMP Blood Test Abstracted Result [facility] HEALTH MAINTENANCE Final Result * Hemoglobin A1c (02/21/2024) [facility] Hemoglobin A1C 6.1 <=6.5 % Blood Venous blood specimen / Unknown Result [facility] LAB BLOOD ORDERABLES Jovita l Result * FIT-DNA (Cologuard) (08/14/2023) [facility] Colorectal Cancer Screening: FIT-DNA (Cologuard) Abstracted, Negative Result [facility] HEALTH MAINTENANCE Final Result * (ABNORMAL) Lipid panel (07/30/2023) [facility] LDL/HDL Ratio 4 0 - 4 Triglycerides 107 0 - 150 mg/dL Cholesterol 169 0 - 200 mg/dL HDL 46 >=40 mg/dL LDL Cholesterol 102(A) 0 - 100 mg/dL Blood Venous blood specimen / Unknown Result [facility] LAB BLOOD ORDERABLES Jovita l Result * Falls Risk Assessment (07/29/2023) [facility] Falls Risk Assessment Abstracted Result [facility] HEALTH MAINTENANCE Final Result * Depression Screening (07/29/2023) [facility] Depression Screening Abstracted Result [facility] HEALTH MAINTENANCE Final Result * Hepatitis C Screening (12/11/2015) [facility] Hepatitis C Screening Abstracted us Historical Provider HEALTH MAINTENANCE Final Result from Last 3 Months or Most Recently Relevant to Health Maintenance Insurance MEDICARE [facility] Care Teams Signal And Communications Maintainer Relationship Specialty Start Date End Date Nicole Romo MD [address] [place] [address] [place] [address] PCP - General 02/29/24
== END 2024-11-20 17:05 ==
LOC: HO.HMCFM 15:27
PROVIDERS: PCP Internal Medicine; Visit Provider Physician Assistant Medical
DX: N20.0 Calculus of kidney (principal); N13.30 Unspecified hydronephrosis; Z96.0 Presence of urogenital implants

== ENCOUNTER → 2024-11-20 15:26 | Outpatient (BNVA) | payer MEDICARE, OTHER, SELFPAY | PROVIDERS: PCP Internal Medicine; Visit Provider Physician Assistant Medical | DX: N20.0 Calculus of kidney (principal); I10 Essential (primary) hypertension; E78.00 Pure hypercholesterolemia, unspecified; N13.30 Unspecified hydronephrosis; R39.9 Unspecified symptoms and signs involving the genitourinary system; Z96.0 Presence of urogenital implants | CPT/HCPCS: 96127; 99212 ==

== ENCOUNTER → 2024-11-21 15:57 | Outpatient (BNV) | payer MEDICARE, OTHER, SELFPAY | PROVIDERS: PCP Internal Medicine; Visit Provider Physician Assistant Medical | DX: Z13.9 Encounter for screening, unspecified (principal) | CPT/HCPCS: 81002 ==

== ENCOUNTER 2024-12-04 10:52 | Outpatient (REF) | payer MEDICARE, OTHER, SELFPAY ==
--- OUTSIDE RECORDS SUMMARY | 2024-12-04 11:31 | XMS_ITS | Clinical Summary ---
Author Organization [facility] Address [address] [place] [id number] Care Team Providers Care Telephony Engineer Name Role Phone Unavailable Primary Care Provider [...] age to complete this topic Insurance Medicare [facility]
--- OUTSIDE RECORDS SUMMARY | 2024-12-04 11:31 | XMS_ITS | Clinical Summary ---
Author Organization [facility] Address [address] [place] [address] Phone Care Team Providers Care Manager People Name Role Phone Nicole Romo MD Primary Care Provider [phone] [phone] Allergies Active Allergy Reactions Criticality Noted Date [...] hours as needed for Cough or Wheezing. 07/29/2023 Active calcium carbonate/vitam in D3 (CALCIUM + D ORAL) Take by mouth daily. Active EPINEPHrine (EpiPen 2-Bandar) 0.3 mg/0.3 mL injection Inject 1 Ampule as directed as needed (anaphylactic reaction). Must go to ER if med is used 03/15/2024 Active lisinopriL (PRINIVIL,ZESTR IL) 10 mg tablet TAKE 1 TABLET BY MOUTH EVERY DAY 02/09/2024 Active Active Problems Problem Noted Date Diagnosed Date Morbid obesity with BMI of 4 0.0-44.9, adult (CMS/HCC V24, CMS/HCC V28) 06/12/2024 Dyspnea on exertion 09/30/2022 Overview [...] and she is going to see the director video at the end of the month. If [...] AM EDT Office Visit Orthopedic Surgery - [place] [address] [place] [phone] Porfirio Byrne, DPM Dermatophytosis of nail (Primary Dx); Tinea pedis of both feet; Pain in toe of right foot; Pain in toe of left foot; Difficulty walking; Diabetic mononeuropathy simplex (CMS/HCC V24, CMS/HCC V28) from Last 3 Months Immunizations Name Administration Dates Next Due Hepatitis B (Abtvypi-F-Iqjqw , Recombivax HB-Adult) 19yo and older 10/26/2013,05/26/2013,04/26/2013 [...] AM EDT Office Visit Orthopedic Surgery - [place] [address] [phone] Porfirio Byrne, DPM [address] [address] 03/15/2025 3:50 PM EDT Appointment Radiology Department [address] [phone] Health Maintenance Due Date Last Done Comments [...] 12 months. BI-RADS: Category 2: Benign Result [facility] Elva MARTINES IMG XR PROCEDURES Final Re sult * Annual BMP Blood Test (02/21/2024) [facility] Annual BMP Blood Test Abstracted Result [facility] HEALTH MAINTENANCE Final Result * Hemoglobin A1c (02/21/2024) [facility] Hemoglobin A1C 6.1 <=6.5 % Blood Venous blood specimen / Unknown Result [facility] LAB BLOOD ORDERABLES Jovita l Result * FIT-DNA (Cologuard) (08/14/2023) [facility] Colorectal Cancer Screening: FIT-DNA (Cologuard) Abstracted, Negative Result [facility] HEALTH MAINTENANCE Final Result * (ABNORMAL) Lipid panel (07/30/2023) [facility] LDL/HDL Ratio 4 0 - 4 Triglycerides 107 0 - 150 mg/dL Cholesterol 169 0 - 200 mg/dL HDL 46 >=40 mg/dL LDL Cholesterol 102(A) 0 - 100 mg/dL Blood Venous blood specimen / Unknown Result [facility] LAB BLOOD ORDERABLES Jovita l Result * Falls Risk Assessment (07/29/2023) [facility] Falls Risk Assessment Abstracted Result [facility] HEALTH MAINTENANCE Final Result * Depression Screening (07/29/2023) [facility] Depression Screening Abstracted Result [facility] HEALTH MAINTENANCE Final Result * Hepatitis C Screening (12/11/2015) [facility] Hepatitis C Screening Abstracted Result [facility] HEALTH MAINTENANCE Final Result from Last 3 Months or Most Recently Relevant to Health Maintenance Insurance MEDICARE [facility] Care Teams Manager People Relationship Specialty Start Date End Date Nicole Romo MD [address] [place] [address] PCP - General 02/29/24
--- OUTSIDE RECORDS SUMMARY | 2024-12-04 11:31 | XMS_ITS | Clinical Summary ---
Author Organization [facility] Address [address] [place] [address] Care Team Providers Care Fleet Service Manager Name Role Phone Nicole Romo MD Primary Care Provider [phone] [phone] Allergies Active Allergy Reactions Criticality Noted Date [...] age to complete this topic Care Teams Fleet Service Manager Relationship Specialty Start Date End Date Nicole Romo MD [address] [place] [phone] PCP - General Internal Medicine 02/29/24
--- OUTSIDE RECORDS SUMMARY | 2024-12-04 11:31 | XMS_ITS ---
Author Organization 175 [facility] Address [address] [place] [address] Phone Care Team Providers Care Fill Plant Operator Name Role Phone Nicole Romo MD Primary Care Provider [phone] [phone] Transitional Care Management Status:Ongoing (Active) Start date:11/04/2024 Enrollment date:11/04/2024 Enrollment reason:Identified using hospital discharge data Case Team Name Relationship Phone Nayan Benoit LPN Care Manager(Responsible Staff) Continued Care and Services Coordination
[2024-12-04 14:32] LABS: MANUAL DIFF FLAG NO
[2024-12-04 14:34] LABS: Appearance Urine Cloudy; Color Urine Yellow; Glucose Urine UA Negative (Negative); Leukocyte Esterase Urine Large (3+) (Negative); Nitrite Urine Negative (Negative); Specific Gravity - Urine 1.015 (1.005-1.025); UMIC TRIGGER UA YES; Urine Blood Moderate (2+) (Negative); Urine Ketones Negative (Negative); Urine Protein 30 (1+) mg/dL (Neg-Trace)
[2024-12-04 14:39] LABS: Bacteria Urine 1+ (None Seen); RBC Urine >20 /HPF (0-2); WBC Urine >50 /HPF (0-5)
[2024-12-04 14:42] LABS: Basophils Absolute Auto 0.1 X10*3/uL (0.0-0.2); Basophils Percent Auto 0.6 % (0-2); Eosinophils Absolute Auto 0.4 X10*3/uL (0.0-0.4); Eosinophils Percent Auto 2.8 % (0-4); Hematocrit 44.2 % (37.0-47.0); Hemoglobin 13.8 g/dl (12.0-16.0); Imm Gran Abs Auto 0.09 X10*3/uL (0.00-0.03); Imm Gran Pct Auto 0.7 % (0.0-0.4); Lymphocytes Absolute Auto 2.9 X10*3/uL (1.2-4.9); Lymphocytes Percent Auto 21.7 % (20-40); Mean Corpuscular HGB Conc 31.2 g/dl (31.0-35.0); Mean Corpuscular Hemoglobin 29.2 pg (27.0-33.0); Mean Corpuscular Volume 93.4 fL (80.0-98.0); Mean Platelet Volume 10.7 fL (9.4-12.3); Monocytes Absolute Auto 0.7 X10*3/uL (0.1-1.2); Monocytes Percent Auto 5.1 % (2-11); Neutrophils Absolute Auto 9.4 x10*3/uL (2.0-8.3); Neutrophils Percent Auto 69.1 % (45-73); Platelet Count 363 X10*3/uL (160-400); Red Blood Count 4.73 X10*6/uL (4.20-5.50); White Blood Count 13.5 X10*3/uL (4.8-10.8)
[2024-12-04 14:45] LABS: Alanine Aminotransferase 7 U/L (0-31); Albumin Level 4.1 g/dL (3.5-5.0); Alkaline Phosphatase 70 U/L (39-117); Anion Gap 13 (12-20); Aspartate Amino Transferase 24 U/L (5-31); Bilirubin Total 1.1 mg/dL (0.0-1.0); Blood Urea Nitrogen 20 mg/dL (9-16); Calcium 9.4 mg/dL (8.4-10.2); Carbon Dioxide 29 mmol/L (22-29); Chloride 105 mmol/L (96-108); Cholesterol 175 mg/dL (<200); Estimated Glomerular Filt Rate > 60; Glucose Random 89 mg/dL (60-115); HDL Cholesterol 39 mg/dL (>40); LDL Cholesterol Calculated 108 mg/dL (<100); Potassium 4.5 mmol/L (3.3-5.1); Sodium 142 mmol/L (135-145); Total Protein 7.7 g/dL (6.5-8.0); Triglycerides 144 mg/dL (<150)
[2024-12-04 14:46] LABS: Estimated Average Glucose 123 mg/dL; Hemoglobin A1C 148.3897 umol/L; Hemoglobin A1c % 5.9 % (<6.0); Total Hemoglobin (HGBA1C) 3621.8428 umol/L
[2024-12-04 15:05] LABS: Alanine Aminotransferase 12 U/L (0-31); Aspartate Amino Transferase 27 U/L (5-31); Cholesterol 172 mg/dL (<200); HDL Cholesterol 41 mg/dL (>40); LDL Cholesterol Calculated 103 mg/dL (<100); Triglycerides 142 mg/dL (<150)
== END 2024-12-04 10:53 | disposition home or self-care (01) ==
LOC: HO.WFDLDS 10:52
PROVIDERS: Internal Medicine Cardiovascular Disease; Referring Provider Physician Assistant Medical; Visit Provider Internal Medicine
DX: R39.9 Unspecified symptoms and signs involving the genitourinary system (principal); Z13.0 Encounter for screening for diseases of the blood and blood-forming organs and certain disorders involving the immune mechanism; Z13.228 Encounter for screening for other metabolic disorders; Z13.220 Encounter for screening for lipoid disorders; I10 Essential (primary) hypertension; R73.03 Prediabetes; E66.01 Morbid (severe) obesity due to excess calories; R07.9 Chest pain, unspecified
CPT/HCPCS: 36415; 80053; 80061; 81001; 83036; 84450; 84460; 85025; 87086; 87088; 87186

== ENCOUNTER 2025-03-07 10:12 | Outpatient (AMB) | payer MEDICARE, OTHER, SELFPAY ==
--- NOTE | 2025-03-07 10:27 | AM.OFFVISMDC ---
Intake Vital Signs 03/07/25 10:46 Height 4 ft 11.5 in Weight 224 lb 8 oz BMI 44.6 BP 126/66 Blood Pressure Location Lt brachial Position Sitting Respiration 14 Pulse 76 Pulse Source Pulse Oximeter Temp 98 F Temp Source Oral Pulse Oximetry (%) 98 Oxygen Delivery Method Room Air Intake Visit Reasons: mawv Intake Note: Medical wellness Visit Packer Insulation Required: No Allergies morphine Allergy (Severe, Verified 03/07/25 10:27) Swelling Penicillins Allergy (Severe, Verified 03/07/25 10:27) face swelling sulfamethoxazole (From Bactrim) Allergy (Severe, Verified 03/07/25 10:27) Rash trimethoprim (From Bactrim) Allergy (Severe, Verified 03/07/25 10:27) Rash doxycycline Allergy (Unknown, Verified 03/07/25 10:27) Hives bee sting Allergy (Severe, Uncoded 03/07/25 10:27) Hives ivp dye Allergy (Unknown, Uncoded 03/07/25 10:27) Hives Medication List - Last Reconciled 03/07/25 by Irais Fleming PA-C cholecalciferol (vitamin D3) 25 mcg PO DAILY ciprofloxacin HCl 500 mg PO BID 7 days lisinopril 10 mg PO DAILY miconazole nitrate 2% (Lotrimin AF) 1 spray topical DAILY mupirocin 2% 1 appl topical BID HPI mawv HPI Details 70 year old female with a past medical history of hypertension, prediabetes, viral pericarditis, obesity, OA, back pain, presenting for a Medicare wellness visit. Normally follows with Dr. Pennington. CV: On lisinopril. Blood pressure today in the office is 126/66. Had post viral pericarditis. Denies chest pain, shortness of breath. She follows with [facility] q 3 months. EKG today in the office is normal sinus rhythm at a rate of 72 beats per minute with ST-T wave abnormalities in the EKG machine did read previous possible anterior infarct. Patient states that she has no idea what her old EKG looked like them this is very concerning to her. She is currently asymptomatic and is going to call her field control inspector to have some compare the EKGs. Her last echo she states was done about 3 years ago. He states it was normal. Denies ever having a stress test. She is not sure why she follows every 3 months with Cardiology. I do not see any scanned notes from Cardiology. MSK: Neck, low back, knee pain. Following with [facility]. Had MRI lumbar spine with no actue findings. Followed with Dr. Snow in 2019 for lumbar fusion and had left brachial plexus injury requiring PT of the hand/arm to regain movement. She states she has now started with a tremor. The tremor started about a year ago. She feels that it is related to the brachial plexus injury. She does not continue to do physical therapy but thinks that this would be beneficial. She has not wish to see Neurology as she feels that this is just related to the injury. -she requests handicap placard today. She states from her chronic low back pain and history of arthritis she has a hard time walking long distances. She has to use a cane and walker. Urologic: 2019 kidney stone removal. Passed right sided kidney stone last week. Follows every six months [address] Dr Valdez. Has noticed a recent change in coloration of her urine and wonders if she could have a UTI. No fever, chills, pain, nausea or vomiting. Derm: Recently saw [facility] for a skin check and states that she wanted to talk to them about the hair growth on her face and they would not talk to her because the referral said skin check. In general she states that she is worried about falling but has done everything at home to prepare for her to age. She states that they live on a single floor and have made it so everything is wheelchair accessible. 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 Her and her are currently working on their living well. She does request new healthcare proxy forms today as they want to change an update this. Declines MOLST form Cologuard due 08/14/2026 Mammogram 02/28/2025 [facility] Medical History (Updated 03/07/25 @ 13:12 by Irais Fleming PA-C) Hydronephrosis Nephrolithiasis Surgical History (Updated 11/20/24 @ 17:23 by BOBBI Deng) S/P ureteral stent placement [place] teeth removed H/O: hysterectomy H/O section H/O Spinal surgery Family History Mother HTN (hypertension) Maternal Grandmother Breast cancer Father Dementia Maternal Grandfather Embolism Maternal Grandmother Brain embolism and thrombosis Social History (Updated 11/20/24 @ 15:37 by Alejandra Lucas MA) Housing: House Alcohol intake: never Patient Tobacco Use Status: Never used Tobacco e-Cigarette/Vaping Use: Never Used Second Hand Smoke Exposure: No service: No Current occupational status: employed and 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 Current occupational exposures/hazards: Yes Cognitive needs: No Hearing needs: No Vision needs: Yes (glasses) Questionnaire Medicare Wellness Checkup What [age] your [age]?: 65-69 What gender do you identify with?: female During the past 4 weeks, how much have you been bothered by emotional problems such as feeling anxious, depressed, irritable, sad or downhearted, and blue?: not at all During the past 4 weeks, has your physical & emotional health limited your social activities with family, friends, neighbors, or groups?: not at all During the past 4 weeks, how much bodily pain have you generally had?: moderate pain During the past 4 weeks, was someone available to help you if you needed & wanted help?: yes, as much as I wanted During the past 4 weeks, what was the hardest physical activity you could do for at least 2 minutes?: light Can you get to places out of walking distance without help? (For eg., can you travel alone on buses, taxis or drive your car?): No Can you go shopping for groceries or clothes without someone's help?: No Can you prepare your own meals?: Yes Can you do your housework without help?: Yes (limited) Because of any health problems, do you need the help of another person with your personal care needs such as eating, bathing, dressing or getting around the house?: Yes (dressing. Can not put socks on, oralia shoes, put bra on without help) Can you handle your own money without help?: Yes During the past 4 weeks, how would you rate your health in general?: good During the past 4 weeks how have things been going for you?: pretty well Are you having difficulties driving your car?: no Do you always fasten your seat belt when you are in a car?: yes, usually During past 4 weeks, have you been bothered by the following: never: Falling or dizzy when standing up, Sexual problems?, Trouble eating well?, Teeth or denture problems? and Problems using the telephone? and sometimes: Tiredness or fatigue? Have you fallen 2 or more times in the past year?: No Are you afraid of falling?: Yes Are you a smoker?: no During the past 4 weeks, how many drinks of wine, beer, or other alcoholic beverages did you have?: no alcohol at all Do you exercise for about 20 minutes 3 or more times a week?: yes, some of the time Have you been given information to help with the following?: yes: Hazards in your house that might hurt you? (stairs) and yes: Keeping track of your medications? How often do you have trouble taking medicines the way you have been told to take them?: I always take medicine as prescribed How confident are you that you can control & manage most of your health problems?: very confident What is your race?: White Mini Mental State Exam (MMSE) Orientation What is the (year) (season) (date) (day) (month)?: year (2024), season (summer), date (03/07), day (Wednesday) and month (February) Where are we (state) (county) (town or city) (hospital) (floor)?: state ([place]), county ([place]), town or city ([place]), hospital/clinic ([facility]) and floor (first) Registration Name of 3 unrelated objects clearly and slowly, then ask patient to repeat all 3 of them. (1st repeat determines score. Make sure they can repeat all three): object 1 (ball), object 2 (flag) and object 3 (tree) Attention & Calculation (CHOOSE ONE) Ask pt to begin with 100 & count backward by 7. Stop after 5 repeats. If pt cannot ask them to spell the word WORLD backward.: 93, 86, 79, 72 and 65 Recall Ask patient to repeat the 3 items from question #3.: object 1 (ball), object 2 (flag) and object 3 (tree) Language Show patient a wristwatch & ask what it is. Repeat for pencil.: watch and pencil Ask the patient to repeat the phrase 'No ifs, ands, or buts' after you.: correct Ask the patient to 'take a piece of paper with their right hand' 'fold paper in half' 'place paper on floor': take paper in right hand, fold paper in half and place paper on floor Print the sentence 'CLOSE YOUR EYES' on a piece. If patient actually closes eyes then score.: followed written direction Give patient a blank piece of paper & ask to write a sentence. Score if it contains a noun & verb.: sentence contains subject and verb Ask patient to copy figure of intersecting pentagons exactly. Score if all 10 angles & 2 intersects are included.: all 10 angles present & 2 are intersected Score Score: 30 PHQ-9 Over the last 2 weeks, how often have you been bothered by any of the following problems? 1. Little interest or pleasure in doing things: not at all 2. Feeling down, depressed, or hopeless: not at all 3. Trouble falling or staying asleep, or sleeping too much: more than half the days 4. Feeling tired or having little energy: several days 5. Poor appetite or overeating: not at all 6. Feeling bad about yourself - or that you are a failure or have let yourself or your family down: not at all 7. Trouble concentrating on things, such as reading the newspaper or watching television: not at all 8. Moving or speaking so slowly that other people could have noticed. Or the opposite - being so fidgety or restless that you have been moving around a lot more than usual: not at all 9. Thoughts that you would be better off or of hurting yourself in some way: not at all Total score: 3 Depression Screening Interpretation: Negative Depression Screening Done: Yes 83863 - PHQ-9 Billing: Yes Source: Developed by Drs. Yovany Ross, Jaky An, Sammy Goldstein and colleagues, with an educational jerome from [id number]. Physical Exam Vital Signs: Last Vital Signs Temp 98 F 03/07/25 10:46 Pulse 76 03/07/25 10:46 Resp 14 03/07/25 10:46 BP 126/66 03/07/25 10:46 Pulse Ox 98 03/07/25 10:46 Oxygen Delivery Method Room Air 03/07/25 10:46 BMI result Body Mass Index 44.6 Const Orientation/consciousness: patient oriented x3 HEENT Ears: hearing grossly normal bilaterally Neck Thyroid: Thyroid normal Lymphatic: no lymphadenopathy noted Resp Auscultation: clear to auscultation bilaterally Cardio Rate: regular rate Rhythm: regular rhythm Heart sounds: S1 normal heart sound present and S2 normal heart sound present GI Inspection: Yes normal to inspection Palpation (GI): Soft to palpation and Other GI palpation findings present (nontender, no cva tenderness) Auscultation: normoactive bowel sounds Rectal Exam - Female: deferred Skin General skin exam: no rashes or lesions noted Neuro General: patient oriented x3, gait normal and no focal motor deficits Office Procedures EKG Details: EKG today in office is normal sinus rhythm at a rate of 72 beats per minute with [address]-T wave abnormalities. No prior study to compare. Follow up with [facility]. EKG interpreted myself and Dr. Pennington. [id number], Complete Results Reviewed Results Reviewed: Laboratory Tests 12/04/24 11:01 Creatinine 0.90 Estimated GFR > 60 Hemoglobin A1c % 5.9 Triglycerides 144 Cholesterol 175 LDL Cholesterol, Calc 108 H HDL Cholesterol 39 L Assessment & Plan Assessment & Plan (1) Medicare annual wellness visit, initial: Code(s): Z00.00 - Encounter for general adult medical examination without abnormal findings Plan: Reviewed healthcare proxy forms with her today and gave them to her to be completed. Declines MOLST form. Reviewed the benefits of having a living will. Reviewed safety at home and a list of her concerns. More than 70 minutes was spent today in [id number] time with patient reviewing a list of her concerns and ongoing chronic medical problems (2) Injury of left brachial plexus: Code(s): S14.3XXA - Injury of brachial plexus, initial encounter Plan: Referral to PT (3) Screening for hyperlipidemia: Code(s): Z13.220 - Encounter for screening for lipoid disorders Plan: Lipids ordered (4) Hypertension: Code(s): I10 - Essential (primary) hypertension Qualifiers: Hypertension type: primary hypertension Qualified Code(s): I10 - Essential (primary) hypertension Plan: WNL. Continue current regimen (5) Prediabetes: Code(s): R73.03 - Prediabetes Plan: Reviewed diet with patient and previous labs. We will monitor. I have ordered this today for her. (6) Hirsutism: Code(s): L68.0 - Hirsutism Plan: Referral to [facility] (7) Chronic low back pain: Code(s): M54.50 - Low back pain, unspecified; G89.29 - Other chronic pain Plan: Paperwork filled out today in office for her handicap kristen. (8) Abnormal EKG: Code(s): R94.31 - Abnormal electrocardiogram [ECG] [EKG] Plan: Fax copy of the EKG to [facility] Patient will follow up with her field control inspector. (9) Abnormal urine: Code(s): R82.90 - Unspecified abnormal findings in urine Plan: ua and culture ordered. has follow up with urology in 2 weeks. will let me know if anything worsens or changes. Orders: Orders PT Evaluation and Treatment Today S14.3XXA - Injury of brachial plexus, initial encounter Complete Blood Count Auto Diff Today I10 - Essential (primary) hypertension, R73.03 - Prediabetes, Z13.220 - Encounter for screening for lipoid disorders Comprehensive [place]. Panel Fast Today I10 - Essential (primary) hypertension, R73.03 - Prediabetes, Z13.220 - Encounter for screening for lipoid disorders TSH reflex Free T4 Today I10 - Essential (primary) hypertension, R73.03 - Prediabetes, Z13.220 - Encounter for screening for lipoid disorders Hemoglobin A1c Today I10 - Essential (primary) hypertension, R73.01 - Impaired fasting glucose, R73.03 - Prediabetes, Z13.220 - Encounter for screening for lipoid disorders UA CC w/rflx Micro + Cult Today R30.0 - Dysuria Lipid Panel Today I10 - Essential (primary) hypertension, R73.03 - Prediabetes, Z13.220 - Encounter for screening for lipoid disorders Referrals Dermatology Referral L68.0 - Hirsutism Quality Reporting (2019) Depression/Bipolar (159/160/161/177) PHQ-9: Total score: 3 Coding Level of Care Code Medicare First (G0438) Est Pt Level 5 (76974) Diagnoses Medicare annual wellness visit, initial Z00.00 Injury of left brachial plexus S14.3XXA Screening for hyperlipidemia Z13.220 Primary hypertension I10 Hypertension type: primary hypertension Prediabetes R73.03 Hirsutism L68.0 Chronic low back pain M54.50; G89.29 Abnormal EKG R94.31 Abnormal urine R82.90 CPT Codes Advance Care Planning - Time spent: 1-15 minutes, on File ([id number]) EKG - CPT: 84129-Eeocmxlqvpeqxnxkh, Complete ([id number]) Additional Codes PHQ-9 - 44457 - PHQ-9 Billing: Yes ([id number]) Advance Care Planning Date of discussion: 03/07/25 Who was present: forms provided Forms completed: Health Care Proxy and Living will (working on it with ) Time spent: 1-15 minutes, on File
[2025-03-07 10:46] VITALS: BP 126/66; PULSE 76; RESP 14; TEMP 36.6; O2SAT 98; BMI 44.6
--- OUTSIDE RECORDS SUMMARY | 2025-03-07 11:23 | XMS_ITS | Clinical Summary ---
Author Organization [address] [facility] Address [address] [place] [address] Phone Care Team Providers Care Tax Compliance Agent Name Role Phone Nicole Romo MD Primary Care Provider [phone] Allergies Active Allergy Reactions Criticality Noted Date [...] TABLET BY MOUTH EVERY DAY 4 Active clotrimazole-be tamethasone (LOTRISONE) 1-0.05 % cream Apply topically 2 (two) times a day for 28 days. 30 g 3 5 02/29/20 25 Active Problems Problem Noted Date Diagnosed Date Morbid obesity with BMI of 4 0.0-44.9, adult ([facility] V24, [facility] V28) 06/12/2024 Dyspnea on exertion 09/30/2022 Overview [...] and she is going to see the pit tanner at the end of the month. If [...] Encounters Date Type Department Care Team Description 01/31/2025 8:45 AM EDT Office Visit Orthopedic Surgery - [place] [address] [place] [phone] Porfirio Byrne, DPM Tinea pedis of both feet (Primary Dx); Dermatophytosis of nail; Pain in toe of right foot; Pain in toe of left foot; Difficulty walking; Diabetic mononeuropathy simplex ([facility] V24, [facility] V28) from Last 3 Months Immunizations Name Administration Dates Next Due Hepatitis B (Csyhvrt-H-Pbfjx , Recombivax HB-Adult) 19yo and older 10/26/2013,05/26/2013,04/26/2013 [...] Care Team (Late st Contact Info) Description 03/15/2025 3:50 PM EDT Appointment Radiology Department [address] [phone] 05/07/2025 10:15 AM EDT Office Visit Orthopedic Surgery - [place] [address] [phone] Porfirio Byrne, MARIANGEL [address] [id number] Health Maintenance Due Date Last Done Comments Diabetes: Annual Foot Exam 1967 Diabetes: Annual Retina Eye Exam 1967 Hepatitis A Vaccines (1 of 2 - Risk 2-dose series) 01/02/1976 Pneumococcal Vaccine: 50+ Years (1 of 2 - PCV) 01/02/1976 Zoster Vaccines (1 of 2) 01/02/1976 RSV Immunization Adult Patients (1 - Risk 60-74 years 1-dose series) 2017 Osteoporosis Screening (Bone Density Screening) 06/22/2022 Social Influencers of Health Screening 06/22/2022 COVID-19 Vaccine ( season) 2024 05/06/2023, 11/14/2021, 05/30/2021, Additional history exists Depression Screening 07/19/2024 07/29/2023 Falls Risk Assessment 07/29/2024 07/29/2023 Medicare Annual Wellness Visit 07/29/2024 07/29/2023 Diabetes: Annual Urine Albumin-Creatinine Ratio (uACR) 01/31/2025 Diabetes: Blood Sugar Control Test (HGBA1C) 01/31/2025 02/21/2024, 02/21/2024 Diabetes: Annual GFR (Glomerular Filtration Rate) 02/20/2025 02/21/2024, 02/21/2024 Hypertension/CHF/CAD Annual BMP Blood Test 02/20/2025 02/21/2024, 02/21/2024 Influenza Vaccine (#1) 2025 4, 05/06/2023, 05/03/2023, Additional history exists Breast Cancer Screening 02/28/2026 02/29/20 24, 02/29/2024, 05/01/2019, Additional history exists Colorectal Cancer Screening: FIT-DNA (Cologuard) 08/14/2026 08/14/2023, 08/14/2023, 08/14/2023 Cholesterol Screening (Lipid Panel) 07/30/2028 07/30/2023 DTaP,Tdap,and Td Vaccines (4 - Td or Tdap) 07/23/2029 07/23/2019, 09/30/2011, 08/29/1997 Hepatitis B Vaccines Completed 10/26/2013, 05/26/2013, 04/26/2013 Hepatitis C Screening Completed 12/11/2015 HIB Vaccines Aged Out No longer eligi [...] in conjunction with computer aided detection. Tomosynthesis as well as 2D C-View imaging were obtained. Comparison: Comparison made to multiple priors, most recent left diagnostic mammogram on May 01, 2019, and most remote bilateral mammogram on December 06, 2014. Breast composition: The breast tissue is heterogeneously dense, which may obscure small masses. Bilateral breasts: Redemonstration of ectatic ducts in the subareolar region of both breasts. No significant masses, suspicious calcifications or other abnormalities are seen in either breast. IMPRESSION: Impression: Bilateral breasts: Benign, no specific mammographic evidence of malignancy. Normal interval follow-up is recommended in 12 [...] 12 months. BI-RADS: Category 2: Benign Result [facility] Elva MARTINES IMG XR PROCEDURES Final Re sult * Annual BMP Blood Test (02/21/2024) [facility] Annual BMP Blood Test Abstracted Result [facility] HEALTH MAINTENANCE Final Result * Hemoglobin A1c (02/21/2024) [facility] Hemoglobin A1C 6.1 <=6.5 % Blood Venous blood specimen / Unknown Result [facility] LAB BLOOD ORDERABLES Jovita l Result * FIT-DNA (Cologuard) (08/14/2023) [facility] Colorectal Cancer Screening: FIT-DNA (Cologuard) Abstracted, Negative Result [facility] Final Result * (ABNORMAL) Lipid panel (07/30/2023) [facility] LDL/HDL Ratio 4 0 - 4 Triglycerides 107 0 - 150 mg/dL Cholesterol 169 0 - 200 mg/dL HDL 46 >=40 mg/dL LDL Cholesterol 102(A) 0 - 100 mg/dL Blood Venous blood specimen / Unknown Result [facility] LAB BLOOD ORDERABLES Jovita l Result * Falls Risk Assessment (07/29/2023) [facility] Falls Risk Assessment Abstracted Result [facility] HEALTH MAINTENANCE Final Result * Depression Screening (07/29/2023) Depression Screening Abstracted Historical Provider HEALTH MAINTENANCE Final Result * Hepatitis C Screening (12/11/2015) Hepatitis C Screening Abstracted Historical Provider HEALTH MAINTENANCE Final Result from Last 3 Months or Most Recently Relevant to Health Maintenance Insurance MEDICARE [facility] Care Teams Tax Compliance Agent Relationship Specialty Start Date End Date Nicole Romo MD [address] [place] [phone] PCP - General 02/29/24
--- OUTSIDE RECORDS SUMMARY | 2025-03-07 11:23 | XMS_ITS ---
Author Name [facility] Organization Unknown Care Team Organization Name Specialty Phone Email Start Date End Da [facility] 03/07/2025 [facility] Krzysztof [place] Primary Care 06/30/2023 03/06/2024 [facility] Sola Rojas DO Primary Care 11/23/202202/16
--- OUTSIDE RECORDS SUMMARY | 2025-03-07 11:23 | XMS_ITS | Clinical Summary ---
Author Organization [facility] Facility Address [address] [place] [id number] Care Team Providers Care Pigment Mixer Name Role Phone Unavailable Primary Care Provider [...] of 1 - PCV) 2007 Influenza Vaccine (#1) 2025 04/20/2018 Hepatitis B Vaccine Aged Out 10/26/2013, 05/26/2013, 04/26/2013 No longer eligible based on patient's age to complete this topic Insurance Medicare [facility]
--- OUTSIDE RECORDS SUMMARY | 2025-03-07 11:23 | XMS_ITS | Clinical Summary ---
Author Organization [facility] Address [address] [place] [address] Care Team Providers Care Ward Aide Name Role Phone Nicole Romo MD Primary Care Provider [phone] Allergies Active Allergy Reactions Criticality Noted Date [...] 85 04/05/2024 11:25 AM EDT Temperature 36.2 C (97.1 F) 04/05/2024 11:25 AM EDT Respiratory Rate - - Oxygen Saturation 100% [...] Screening (DEXA Scan) 2022 Influenza Vaccine (#1) 2025 2, 04/30/2020, 05/19/2019, Additional history exists DTap / Tdap / Td (3 - Td or Tdap) 07/23/2029 07/23/2019, 09/30/2011 Hepatitis B Vaccines Completed 10/26/2013, 05/26/2013, 04/26/2013 RSV Ped < 20 months Aged Out No longe r eligible based on patient's age to complete this topic Care Teams Ward Aide Relationship Specialty Start Date End Date Nicole Romo MD [address] [place] [id number] PCP - General Internal Medicine 02/29/24
== END 2025-03-07 11:36 | disposition home or self-care (01) ==
LOC: HO.HMCFM 10:13
PROVIDERS: PCP Internal Medicine; Visit Provider Physician Assistant
DX: Z00.00 Encounter for general adult medical examination without abnormal findings (principal); S14.3XXA Injury of brachial plexus, initial encounter; I10 Essential (primary) hypertension; R73.03 Prediabetes; L68.0 Hirsutism; M54.50 Low back pain, unspecified; G89.29 Other chronic pain; R94.31 Abnormal electrocardiogram [ECG] [EKG]; R82.90 Unspecified abnormal findings in urine; Z13.220 Encounter for screening for lipoid disorders

== ENCOUNTER → 2025-03-07 10:12 | Outpatient (BNVA) | payer MEDICARE, OTHER, SELFPAY | PROVIDERS: PCP Internal Medicine; Visit Provider Physician Assistant | DX: Z00.00 Encounter for general adult medical examination without abnormal findings (principal); S14.3XXD Injury of brachial plexus, subsequent encounter; I10 Essential (primary) hypertension; R73.03 Prediabetes; L68.0 Hirsutism; M54.50 Low back pain, unspecified; G89.29 Other chronic pain; R94.31 Abnormal electrocardiogram [ECG] [EKG]; R82.90 Unspecified abnormal findings in urine | CPT/HCPCS: 93005; 96127; 99212 ==

== ENCOUNTER 2025-06-04 13:20 | Outpatient (REF) | payer MEDICARE, OTHER, SELFPAY ==
[2025-06-04 18:05] LABS: MANUAL DIFF FLAG NO
[2025-06-04 18:13] LABS: Appearance Urine Clear; Glucose Urine UA Negative (Negative); PH 6.5 (5.0-9.0); Specific Gravity - Urine 1.015 (1.005-1.025); UMIC TRIGGER UACC YES
[2025-06-04 18:19] LABS: UACC Culture Trigger YES
[2025-06-04 18:21] LABS: Hematocrit 44.3 % (37.0-47.0); Hemoglobin 13.4 g/dl (12.0-16.0); Imm Gran Abs Auto 0.13 X10*3/uL (0.00-0.03); Imm Gran Pct Auto 0.8 % (0.0-0.4); Lymphocytes Absolute Auto 3.6 X10*3/uL (1.2-4.9); Mean Corpuscular HGB Conc 30.2 g/dl (31.0-35.0); Mean Corpuscular Hemoglobin 28.9 pg (27.0-33.0); Mean Corpuscular Volume 95.7 fL (80.0-98.0); NRBC Abs Auto 0.000 X10*3/uL (0.0-0.012); NRBC Pct Auto 0.0 /100WBC (0.0-0.2); Platelet Count 356 X10*3/uL (160-400); Red Blood Count 4.63 X10*6/uL (4.20-5.50); White Blood Count 15.9 X10*3/uL (4.8-10.8)
[2025-06-04 18:45] LABS: Alanine Aminotransferase 12 U/L (0-31); Albumin Level 4.4 g/dL (3.5-5.0); Alkaline Phosphatase 72 U/L (39-117); Anion Gap 13 (12-20); Aspartate Amino Transferase 26 U/L (5-31); Blood Urea Nitrogen 14 mg/dL (9-16); Calcium 9.3 mg/dL (8.4-10.2); Carbon Dioxide 28 mmol/L (22-29); Chloride 104 mmol/L (96-108); Cholesterol 168 mg/dL (<200); Estimated Glomerular Filt Rate > 60; HDL Cholesterol 42 mg/dL (>40); Potassium 3.9 mmol/L (3.3-5.1); Sodium 141 mmol/L (135-145); Total Protein 7.8 g/dL (6.5-8.0); Triglycerides 148 mg/dL (<150)
== END 2025-06-04 13:21 | disposition home or self-care (01) ==
LOC: HO.WFDLDS 13:20
PROVIDERS: Visit Provider Physician Assistant
DX: Z13.220 Encounter for screening for lipoid disorders (principal); I10 Essential (primary) hypertension; R73.03 Prediabetes; R73.01 Impaired fasting glucose; N20.0 Calculus of kidney; R30.0 Dysuria
CPT/HCPCS: 36415; 80048; 80053; 80061; 81001; 83036; 84443; 85025; 87086

== ENCOUNTER 2025-07-02 15:14 | Outpatient (AMB) | payer MEDICARE, OTHER, SELFPAY ==
--- NOTE | 2025-07-02 15:22 | A.OFFPC_ITS ---
Vital Signs 07/02/25 15:33 Height 4 ft 11.5 in Weight 226 lb BMI 44.9 BP 136/76 Blood Pressure Location Rt brachial Position Sitting Respiration 14 Pulse 82 Pulse Source Pulse Oximeter Temp 98 F Temp Source Oral Pulse Oximetry (%) 96 Oxygen Delivery Method Room Air Intake Visit Reasons: 3 month with pcp RE Intake Note: Three month follow up. Kidney stone removal sceduled at [facility] on 07/16/2025 [employer] Manager Required: No Allergies morphine Allergy (Severe, Verified 07/02/25 15:35) Swelling Penicillins Allergy (Severe, Verified 07/02/25 15:35) face swelling sulfamethoxazole (From Bactrim) Allergy (Severe, Verified 07/02/25 15:35) Rash trimethoprim (From Bactrim) Allergy (Severe, Verified 07/02/25 15:35) Rash doxycycline Allergy (Unknown, Verified 07/02/25 15:35) Hives bee sting Allergy (Severe, Uncoded 07/02/25 15:35) Hives ivp dye Allergy (Unknown, Uncoded 07/02/25 15:35) Hives Tobacco use date assessed: 07/02/25 Fall risk assessment: 1 Fall in past year Last assessed Fall Risk: 07/02/25 Dental Screening Dental Screen Date: 11/20/24 HPI HPI Comments History of Present Illness Details 69 year old female with a past medical h istory of hypertension, prediabetes, viral pericarditis, obesity, OA, back pain, presenting to reestablish care CV: On lisinopril 10mg daily. Had post viral pericarditis 2 years ago. Denies chest pain, shortness of breath. Recent cardiology visit. MSK: Neck, low back, knee pain is stable. Has followed with Sharif King in the past. Urologic: Recurrent kidney stones. Follows every six months with Dr Valdez. 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 Heme/onc: Has seen hematology for elevated wbc in past. Advised it is her baseline and reassured Cologuard due 08/14/2026 Mammogram 02/28/2025 Flu vaccine received ROS CONSTITUTIONAL: Denies weight loss, fever and chills. HEENT: Denies changes in vision and hearing. RESPIRATORY: Denies SOB and cough. CV: Denies palpitations and CP GI: Denies abdominal pain, nausea, vomiting and diarrhea. : Denies dysuria and urinary frequency. MSK: Denies new myalgia and joint pain. SKIN: Pain on the great toe bed NEUROLOGICAL: Denies headache PSYCHIATRIC: Denies recent changes in mood. PHYSICAL EXAM: GENERAL: Alert and oriented x 3. NAD EYES: EOMI. Anicteric. HENT: Moist mucous membranes. No scleral icterus. No cervical lymphadenopathy. LUNGS: Clear to auscultation bilaterally. CARDIOVASCULAR: Regular rate and rhythm. No murmur. No JVD. ABDOMEN: Soft, non-tender +bs EXTREMITIES: No edema. Non-tender. SKIN: Pain under the right great toe nail with mild fluctuance NEUROLOGIC: No focal neurological deficits. CN II-XII grossly intact PSYCHIATRIC: Cooperative. Appropriate mood and affect [facility] Medical History (Updated 07/02/25 @ 16:12 by Ana Pennington MD) Hydronephrosis Nephrolithiasis Surgical History (Updated 11/20/24 @ 17:23 by BOBBI Deng) S/P ureteral stent placement [place] teeth removed H/O: hysterectomy H/O section H/O Spinal surgery Family History Mother HTN (hypertension) Maternal Grandmother Breast cancer Father Dementia Maternal Grandfather Embolism Maternal Grandmother Brain embolism and thrombosis Social History (Updated 11/20/24 @ 15:37 by Alejandra Lucas MA) Housing: House Alcohol intake: never Patient Tobacco Use Status: Never used Tobacco e-Cigarette/Vaping Use: Never Used Second Hand Smoke Exposure: No service: No Current occupational status: employed and 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 Current occupational exposures/hazards: Yes Cognitive needs: No Hearing needs: No Vision needs: Yes (glasses) Questionnaire Thrive Questionnaire Date Thrive assessed: 08/25/24 I am a: Patient What is your living situation today?: I have a steady place to live Within the past 12 months, did the food you bought not last and you didn't have the money to get more?: I choose not to answer this question Within the past 12 months, did you worry whether your food would run out before you got money to buy more?: I choose not to answer this question Do you have trouble paying for medicines?: I choose not to answer this question Do you have trouble getting transportation to medical appointments?: I choose not to answer this question Do you have trouble paying your heating and electricity bill?: I choose not to answer this question Do you have trouble taking care of your child, family member or friend?: I choose not to answer this question Do you have trouble with day-to-day activities such as bathing, preparing meals, shopping, managing finances, etc.?: I choose not to answer this question Are you currently unemployed and looking for a job?: I choose not to answer this question Are you interested in more education?: I choose not to answer this question Please select the resources that you would like help with: None Currently or been in a relationship where the following occur: No concerns reported THRIVE Score: 0 AUDIT C Alcohol Use Questionnaire (AUDIT-C) 1. How often do you have a drink containing alcohol?: Never 3. How often do you have six or more drinks on one occasion?: Never Total Score: 0 IVA-7 AMB Questionnaire IVA-7 Date IVA - 7 assessed: 11/20/24 Source: Developed by Drs. Yovany Ross, Jaky An, Sammy Goldstein and colleagues, with an educational jerome from [employer]. Physical exam (Primary Care) Tobacco/Smoking Status: Tobacco use Status Tobacco use date assessed 11/20/24 07/02/25 15:23 Patient Tobacco Use Status Never used Tobacco 07/02/25 15:23 e-Cigarette/Vaping Use Never Used 07/02/25 15:23 Thrive Assessment: Date of Thrive Assessment Date Thrive assessed 08/25/24 07/02/25 15:23 Currently or been in a relationship where the following occur: No concerns reported Coding Level of Care Code Add On Preventative Visit Only Diagnoses Primary hypertension I10 Hypertension type: primary hypertension Prediabetes R73.03 Chronic low back pain, unspecified back pain laterality, unspecified whether sciatica present M54.50; G89.29 Back pain laterality: unspecified Sciatica presence: unspecified whether sciatica present Assessment & Plan Assessment & Plan (1) Hypertension: Code(s): I10 - Essential (primary) hypertension Category: Medical Qualifiers: Hypertension type: primary hypertension Qualified Code(s): I10 - Essential (primary) hypertension (2) Prediabetes: Code(s): R73.03 - Prediabetes Category: Medical (3) Chronic low back pain: Code(s): M54.50 - Low back pain, unspecified; . - Other chronic pain Category: Medical Qualifiers: Back pain laterality: unspecified Sciatica presence: unspecified whether sciatica present Qualified Code(s): M54.50 - Low back pain, unspecified; G89. - Other chronic pain Plan 70 year old female presenting for follow up Interval history reviewed HTN is well controlled on lisinopril MSK-stable arthritis Return for CPE/AWV six months with labs prior Orders: Orders Complete Blood Count Auto Diff 6 Months . - Other chronic pain, I10 - Essential (primary) hypertension, M54.50 - Low back pain, unspecified, R73.03 - Prediabetes, Z13.220 - Encounter for screening for lipoid disorders Hemoglobin A1c 6 Months . - Other chronic pain, I10 - Essential (primary) hypertension, M54.50 - Low back pain, unspecified, R73.03 - Prediabetes, Z13.220 - Encounter for screening for lipoid disorders TSH reflex Free T4 6 Months . - Other chronic pain, I10 - Essential (primary) hypertension, M54.50 - Low back pain, unspecified, R73.03 - Prediabetes, Z13.220 - Encounter for screening for lipoid disorders Comprehensive Met. Panel 6 Months . - Other chronic pain, I10 - Essential (primary) hypertension, M54.50 - Low back pain, unspecified, R73.03 - Prediabetes, Z13.220 - Encounter for screening for lipoid disorders Lipid Panel 6 Months . - Other chronic pain, I10 - Essential (primary) hypertension, M54.50 - Low back pain, unspecified, R73.03 - Prediabetes, Z13.220 - Encounter for screening for lipoid disorders Medications: Refilled lisinopril 10 mg PO DAILY 90 tabs 3RF
[2025-07-02 15:33] VITALS: BP 136/76; PULSE 82; RESP 14; TEMP 36.6; O2SAT 96; BMI 44.9
--- OUTSIDE RECORDS SUMMARY | 2025-07-02 21:45 | XMS_ITS | Clinical Summary ---
Author Organization [facility] Prior to 12/16/[address] [place] [address] Care Team Providers Care Option Trader Name Role Phone Nicole Romo MD Primary Care Provider [phone] Allergies Active Allergy Reactions Criticality Noted Date Comments Amoxicillin 04/05/2024 Sulfamethoxazole-Trimethoprim 2023 Penicillins 04/05/2024 Medications Medication Sig Dispensed Refills Start Date End Date Status lisinopril (PRINIVIL,ZESTRIL) tablet 10 mg Take 1 tablet (10 mg total) by mouth daily. 0 Active Cholecalciferol (Vitamin D) 50 MCG (1999 UT) tablet Take 2,000 Units by mouth [...] age to complete this topic Care Teams Option Trader Relationship Specialty Start Date End Date Nicole Romo MD [address] [place] [id number] PCP - General Internal Medicine 02/29/24
--- OUTSIDE RECORDS SUMMARY | 2025-07-02 21:45 | XMS_ITS | Clinical Summary ---
Author Organization [facility] Address [address] [place] [address] Phone Care Team Providers Care Litigation Claim Representative Name Role Phone Nicole Romo MD Primary Care Provider [phone] Allergies Active Allergy Reactions Criticality Noted Date [...] for Cough or Wheezing. 4 Active calcium carbonate/rosa min D3 (CALCIUM + D ORAL) Take by mouth daily. Active EPINEPHrine (EpiPen 2-Bandar) 0.3 mg/0.3 mL injection 0.3 mL (0.3 mg total) 1 (one) time. 4 Active lisinopriL (PRINIVIL,ZEST RIL) 10 mg tablet Take 1 tablet (10 mg total) by mouth 1 (one) time each day. 4 Active diclofenac (VOLTAREN) 1 % topical gel Apply 4 g topically 4 (four) times a day. 480 g 3 5 06/20/20 Discontinue d(Therapy completed) acetaminophen (TYLENOL 8 HOUR) 650 mg 8 hr tablet Take 1 tablet (650 mg total) by mouth every 8 (eight) hours if needed for mild pain or moderate pain. Do not crush, chew, or split. 90 tablet 3 5 06/21/20 Active Problems Problem Noted Date Diagnosed Date [...] and she is going to see the oracle application consultant at the end of the month. If [...] Encounters Date Type Department Care Team Description 05/22/2025 1:15 PM EST Office Visit Orthopedic Surgery - [place] [address] [facility] [address] [place] [phone] Liza Kirkland MD Arthritis of right knee (Primary Dx) 05/16/2025 5:34 PM EDT - 05/16/2025 11:59 PM EDT Hospital Encounter [facility] MRI [address] [place] [phone] Right knee pain, unspecified chronicity Discharge Disposition: Home or Self Care 05/07/2025 3:30 PM EDT Office Visit Orthopedic Surgery [facility] [address] [facility] [address] [place] [phone] Liza Kirkland MD Right knee pain, unspecified chronicity (Primary Dx) 05/07/2025 10:15 AM EDT Office Visit Orthopedic Surgery [facility] 250 175 [facility] [address] [place] [phone] Porfirio Byrne, DPM Acquired hammer toe of right foot (Primary Dx); Acute pain of right knee; Dermatophytosis of nail; Tinea pedis of both feet; Pain in toe of right foot; Pain in toe of left foot; Difficulty walking; Diabetic mononeuropathy simplex (CMS/HCC V24, CMS/HCC V28); Hammer toe of left foot from Last 3 Months Immunizations Immunization Administration Dates Next Due Hepatitis B (Ycfhrrm-B-Robjw , Recombivax HB-Adult) 19yo and older 10/26/2013,05/26/2013,04/26/2013 [...] pertussis (Boostrix; Adacel) 7yo and older 07/23/2019,09/30/2011 Surgical History Surgery Date Site/Laterality Comments OTHER SURGICAL HISTORY HYSTERECTOMY SECTION, LOW TRANSVERSE SPINAL FUSION KIDNEY STONE SURGERY WISDOM TOOTH EXTRACTION Medical History Medical History Date Comments Pericarditis HX o9f Chronic kidney disease Arthritis Joint pain spine Social History Tobacco Use Types Packs/Day Years Used Date Smoking Tobacco: Never Assessed Comments Unknown Sex and Gender Information Value Date Recorded Sex Assigned at Not on file Legal Sex Female 10:56 AM EST Gender Identity Not on file Sexual Orientation Not on file Last Filed Vital Signs Vital Sign Reading Time Taken Comments Blood Pressure 111/45 04/05/2024 11:25 AM EDT Pulse 85 04/05/2024 11:25 AM EDT Temperature - - Respiratory Rate - - Oxygen Saturation - - Inhaled Oxygen Concentration - - Weight 102 kg (225 lb) 06/20/2025 11:00 AM EST Height 152.4 cm (5') 06/20/2025 11:00 AM EST Body Mass Index 43.94 06/20/2025 11:00 AM EST Plan of Treatment Upcoming Encounters Date Type Department Care Team (Late st Contact Info) Description 07/16/2025 1:30 PM EST Hospital Encounter [facility] OR [address] [place] [phone] Diana Gill MD [address] [place] [phone] 07/16/2025 1:30 PM EST - 07/16/2025 3:00 PM EST Surgery [facility] OR [address] [place] [phone] Diana Gill MD [address] [place] [address] CYSTOSCOPY LEFT URETEROSCOPY, LASER LITHOTRIPSY RETROGRADE STENT [35236 (CPT )] 08/15/2025 8:30 AM EST Office Visit Orthopedic Surgery - [place] [address] [phone] Porfirio Byrne, DPChao [address] [phone] Scheduled Procedures Name Priority Associated Diagnoses Date/Ti me CYSTOSCOPY URETEROSCOPY Calculus of kidney 07/16/2025 1:30 PM EST Health Maintenance Due Date Last Done Comments Diabetes: Annual Foot Exam 1967 Diabetes: Annual Retina Eye Exam 1965 Hepatitis A Vaccines (1 of 2 - Risk 2-dose series) 01/02/1976 Pneumococcal Vaccine: 50+ Years (1 of 2 - PCV) 01/02/1976 Zoster Vaccines (1 of 2) 01/02/1976 RSV Immunization Adult Patients (1 - Risk 50-74 years 1-dose series) 2007 Osteoporosis Screening (Bone Density Screening) 06/22/2022 Social Influencers of Health Screening 06/22/2022 Depression Screening 07/19/2024 07/29/2023 Falls Risk Assessment 07/29/2024 07/29/2023 Diabetes: Annual GFR (Glomerular Filtration Rate) 02/20/2025 02/21/2024, 02/21/2024 Hypertension/CHF/CAD Annual BMP Blood Test 02/20/2025 02/21/2024, 02/21/2024 COVID-19 Vaccine ( season) 2025 05/06/2023, 11/14/2021, 05/30/2021, Additional history exists Influenza Vaccine (#1) 2025 , 05/06/2023, 05/03/2023, Additional history exists Diabetes: Annual Urine Albumin-Creatinine Ratio (uACR) 05/07/2025 Diabetes: Blood Sugar Control Test (HGBA1C) 05/07/2025 02/21/2024, 02/21/2024 Breast Cancer Screening 02/28/2026 02/29/20, 02/29/2024, 05/01/2019, Additional history exists Medicare Annual Wellness Visit 03/07/2026 03/07/2025 Colorectal Cancer Screening: FIT-DNA (Cologuard) 08/14/2026 08/14/2023, [...] on patient's age to complete this topic Goals Goal Patient Goal Type Associated Problems Recent Progress Patient-Stated? Author Autogenerat ed Goal Care Plan Autogenerated Problem No Teresa Daley Procedures Procedure Name Priority Date/Time Associated Diagnosis Comments MR KNEE WO CONTRAST RIGHT Routine 05/16/2025 6:40 PM EDT Right knee pain, unspecified chronicity XR KNEE 3 VIEWS RIGHT Routine 05/07/2025 3:12 PM EDT Right knee pain, unspecified chronicity SCREENING MAMMOGRAPHY BI 2-VIEW BREAST INC CAD [...] Recently Relevant to Health Maintenance Results * MR Knee wo Contrast Right (05/16/2025 6:40 PM EDT) Anatomical Region Laterality Modality Lower Extremities, Knee Right Magnetic Resonance 05/17/2025 3:22 AM EDT Impressions 05/17/2025 3:36 AM EDT 1. Osteochondral lesion involving the medial aspect of the lateral femoral condyle measuring approximately 6 mm without MRI findings to suggest instability 2. Tricompartmental osteoarthritis of the right knee, greatest in the patellofemoral and medial tibiofemoral compartments 3. Degenerative tearing of the posterior horn of the medial meniscus -------- FINAL REPORT -------- Dictated By: Juliet Burks Dictated Date: 05/17/2025 03:22 ET Assigned Physician: Juliet Burks Reviewed and Electronically Signed By: Juliet Burks Signed Date: 05/17/2025 03:36 ET Workstation ID: [id number] Transcribed By: Self Edit Transcribed Date: 05/17/2025 03:22 ET Narrative 05/17/2025 3:36 AM EDT INDICATION: Knee pain, osteochondral injury suspected eval rt medial femoral condyle for OCD COMPARISON: None TECHNIQUE: Multiplanar, multisequence MRI examination was performed of the RIGHT knee without intravenous contrast. FINDINGS: Scan sensitivity is degraded due to motion, specifically the sagittal and axial T2 fat sat sequence Menisci:Degenerative tearing of the posterior horn of the medial meniscus. Lateral meniscus is intact. Ligaments:Minimal grade 1 MCL sprain. ACL, PCL and LCL complex are intact. Tendons:Quadriceps mechanism and popliteus tendon are intact. Bones:Tricompartmental osteophytes. Heterogeneous bone marrow signal. 6 mm defect along the medial aspect of the lateral femoral condyle in keeping with an osteochondral lesion with mild associated bone marrow edema without fluid signal to suggest instability. Additionally, more posteriorly, there is cystic change involving the far posterior nonweightbearing portion of the medial femoral condyle. Cystic change of the proximal fibula. Cartilage: Patellofemoral:Full-thickness cartilage loss involving the lateral patellar facet extending to the median ridge with associated cystic change. Near full-thickness cartilage loss involving the lateral trochlear articular facet extending into the central trochlea inferiorly. Medial tibiofemoral:Greater than 50% cartilage thinning involving the weightbearing portion of the medial femoral condyle. Approximately 50% cartilage thinning at site of patient's osteochondral lesion and mild to moderate cartilage thinning involving the far posterior nonweightbearing portion of the medial femoral condyle at site of subchondral cystic change. Lateral tibiofemoral:Focal area of full-thickness cartilage loss involving the central portion of the lateral femoral condyle. Approximately 50% cartilage thinning involving the central and posterior portion of the lateral tibial plateau. Miscellaneous:Subcutaneous edema along the lateral aspect of the knee inferiorly as well as prepatellar region. Right knee joint effusion with synovitis. Tiny popliteal cyst. Procedure Note Juliet Burks MD - 05/17/2025 INDICATION: Knee pain, osteochondral injury suspected eval rt medial femoral condyle for OCD COMPARISON: None TECHNIQUE: Multiplanar, multisequence MRI examination was performed ofthe RIGHT knee without intravenous contrast. FINDINGS: Scan sensitivity is degraded due to motion, specifically thesagittal and axial T2 fat sat sequence Menisci:Degenerative tearing of the posterior horn of the medial meniscus.Lateral meniscus is intact. Ligaments:Minimal grade 1 MCL sprain. ACL, PCL and LCL complex areintact. Tendons:Quadriceps mechanism and popliteus tendon are intact. Bones:Tricompartmental osteophytes. Heterogeneous bone marrow signal. 6mm defect along the medial aspect of the lateral femoral condyle inkeeping with an osteochondral lesion with mild associated bone marrowedema without fluid signal to suggest instability. Additionally, moreposteriorly, there is cystic change involving the far posteriornonweightbearing portion of the medial femoral condyle. Cystic change ofthe proximal fibula. Cartilage: Patellofemoral:Full-thickness cartilage loss involving the lateralpatellar facet extending to the median ridge with associated cysticchange. Near full-thickness cartilage loss involving the lateraltrochlear articular facet extending into the central trochleainferiorly. Medial tibiofemoral:Greater than 50% cartilage thinning involving theweightbearing portion of the medial femoral condyle. Approximately 50%cartilage thinning at site of patient's osteochondral lesion and mild tomoderate cartilage thinning involving the far posterior nonweightbearingportion of the medial femoral condyle at site of subchondral cysticchange. Lateral tibiofemoral:Focal area of full-thickness cartilage loss involvingthe central portion of the lateral femoral condyle. Approximately 50%cartilage thinning involving the central and posterior portion of thelateral tibial plateau. Miscellaneous:Subcutaneous edema along the lateral aspect of the kneeinferiorly as well as prepatellar region. Right knee joint effusion withsynovitis. Tiny popliteal cyst. IMPRESSION: 1. Osteochondral lesion involving the medial aspect of the lateralfemoral condyle measuring approximately 6 mm without MRI findings tosuggest instability 2. Tricompartmental osteoarthritis of the right knee, greatest in thepatellofemoral and medial tibiofemoral compartments 3. Degenerative tearing of the posterior horn of the medial meniscus -------- FINAL REPORT -------- Dictated By: Juliet Burks Dictated Date: 05/17/2025 03:22 ET Assigned Physician: Juliet Burks Reviewed and Electronically Signed By: Juliet Burks Signed Date: 05/17/2025 03:36 ET Workstation ID: [id number] Transcribed By: Self Edit Transcribed Date: 05/17/2025 03:22 ET us Liza Kirkland MD IMG MRI PROCEDURES Final Resul t * XR Knee 3 Views Right (05/07/2025 3:12 PM EDT) Anatomical Region Laterality Modality Lower Extremities, Knee Right Computed Radiography 05/07/2025 6:27 PM EDT Impressions 05/07/2025 6:39 PM EDT Severe degenerative changes at the patellofemoral joint. Findings concerning for an osteochondral lesion involving the medial femoral condyle. -------- FINAL REPORT -------- Dictated By: Bianka Capps Dictated Date: 05/07/2025 18:27 ET Assigned Physician: Bianka Capps Reviewed and Electronically Signed By: Bianka Capps Signed Date: 05/07/2025 18:39 ET Workstation ID: [id number] Transcribed By: Self Edit Transcribed Date: 05/07/2025 18:36 ET Narrative 05/07/2025 6:39 PM EDT EXAM: Right knee x-ray HISTORY: Knee pain. COMPARISON: 05/21/2021 VIEWS: 3 views performed, PA view performed weightbearing. FINDINGS: Severe joint space narrowing at the lateral patellofemoral joint as before with periarticular spurring and subchondral sclerosis. Minimal spurring in the medial and lateral compartments with preserved joint spaces. 1.2 cm lucent lesion with a thin sclerotic margin involving the medial femoral condyle concerning for an osteochondral lesion. No destructive bone lesion. No significant joint effusion. Procedure Note Bianka Capps MD - 05/07/2025 EXAM: Right knee x-ray HISTORY: Knee pain. COMPARISON: 05/21/2021 VIEWS: 3 views performed, PA view performed weightbearing. FINDINGS: Severe joint space narrowing at the lateral patellofemoral joint as beforewith periarticular spurring and subchondral sclerosis. Minimal spurring inthe medial and lateral compartments with preserved joint spaces. 1.2 cmlucent lesion with a thin sclerotic margin involving the medial femoralcondyle concerning for an osteochondral lesion. No destructive bonelesion. No significant joint effusion. IMPRESSION: Severe degenerative changes at the patellofemoral joint. Findingsconcerning for an osteochondral lesion involving the medial femoralcondyle. -------- FINAL REPORT -------- Dictated By: Bianka Capps Dictated Date: 05/07/2025 18:27 ET Assigned Physician: Bianka Capps Reviewed and Electronically Signed By: Bianka Capps Signed Date: 05/07/2025 18:39 ET Workstation ID: [id number] Transcribed By: Self Edit Transcribed Date: 05/07/2025 18:36 ET us Liza Kirkland MD IMG XR PROCEDURES Final Result * SCREENING MAMMOGRAPHY BI 2-VIEW BREAST INC [...] 12 months. BI-RADS: Category 2: Benign Result [facility] Elva MARTINES IMG XR PROCEDURES Final Re sult * Annual BMP Blood Test (02/21/2024) [facility] Annual BMP Blood Test Abstracted Result [facility] HEALTH MAINTENANCE Final Result * Hemoglobin A1c (02/21/2024) [facility] Hemoglobin A1C 6.1 <=6.5 % Blood Venous blood specimen / Unknown Result [facility] LAB BLOOD ORDERABLES Jovita l Result * FIT-DNA (Cologuard) (08/14/2023) [facility] Colorectal Cancer Screening: FIT-DNA (Cologuard) Abstracted, Negative Result [facility] HEALTH MAINTENANCE Final Result * (ABNORMAL) Lipid panel (07/30/2023) [facility] LDL/HDL Ratio 4 0 - 4 Triglycerides 107 0 - 150 mg/dL Cholesterol 169 0 - 200 mg/dL HDL 46 >=40 mg/dL LDL Cholesterol 102(A) 0 - 100 mg/dL Blood Venous blood specimen / Unknown Result [facility] LAB BLOOD ORDERABLES Jovita l Result * Falls Risk Assessment (07/29/2023) [facility] Falls Risk Assessment Abstracted Result [facility] HEALTH MAINTENANCE Final Result * Depression Screening (07/29/2023) [facility] Depression Screening Abstracted Result [facility] HEALTH MAINTENANCE Final Result * Hepatitis C Screening (12/11/2015) Hepatitis C Screening Abstracted Historical Provider HEALTH MAINTENANCE Final Result from Last 3 Months or Most Recently Relevant to Health Maintenance Additional Health Concerns Active Problems Noted Date Diagnosed Date Autogenerated Problem 05/28/2025 Insurance MEDICARE [facility] Care Teams Litigation Claim Representative Relationship Specialty Start Date End Date Nicole Romo MD [address] [place] [address] [place] [address] PCP - General 02/29/24
== END 2025-07-02 16:07 | disposition home or self-care (01) ==
LOC: HO.HMCFM 15:15
PROVIDERS: PCP Internal Medicine; Visit Provider Internal Medicine
DX: I10 Essential (primary) hypertension (principal); R73.03 Prediabetes; M54.50 Low back pain, unspecified; G89.29 Other chronic pain

== ENCOUNTER → 2025-07-02 15:14 | Outpatient (BNVA) | payer MEDICARE, OTHER, SELFPAY | PROVIDERS: PCP Internal Medicine; Visit Provider Internal Medicine | DX: I10 Essential (primary) hypertension (principal); M54.50 Low back pain, unspecified; G89.29 Other chronic pain; R73.03 Prediabetes; M19.90 Unspecified osteoarthritis, unspecified site | CPT/HCPCS: 99212 ==